=== PATIENT | female | born 1990 | race Caucasian/White ===

== ENCOUNTER 2022-04-17 08:38 | Day surgery (SDC) | payer OTHER ==
[~2022-04-17] VITALS: Ht 149.9 cm; Wt 81.6 kg
[~2022-04-17 08:38] MED LIST: ALPR2TAB1 PO; FLUT1DSK2 IH; MEGE40SU6 PO
[2022-04-17] MEDS ORDERED: PROPOFOL 200 MG/20 ML VIAL IV ONE ×2 (11:02)
[2022-04-17] MEDS ORDERED: LABETALOL 20 MG/4 ML VIAL IVP PRN (11:43)
[2022-04-17] MEDS ORDERED: hydrALAZINE 20 MG/ML VIAL IVP PRN (11:45)
[2022-04-17] MEDS ORDERED: LACTATED RINGERS 1,000 ML IV SCH (11:45)
== END 2022-04-17 12:36 | disposition home or self-care (01) ==
LOC: MDS 08:38 → MMU 08:48 → MDS 12:36
PROVIDERS: ATTEND Internal Medicine Gastroenterology
DX: K62.5 Hemorrhage of anus and rectum (principal); I10 Essential (primary) hypertension; R05.9 Cough, unspecified; K21.9 Gastro-esophageal reflux disease without esophagitis; F41.9 Anxiety disorder, unspecified; G40.909 Epilepsy, unspecified, not intractable, without status epilepticus; Z85.42 Personal history of malignant neoplasm of other parts of uterus; F31.9 Bipolar disorder, unspecified; Z88.8 Allergy status to other drugs, medicaments and biological substances; Z79.899 Other long term (current) drug therapy; Z20.822 Contact with and (suspected) exposure to COVID-19
CPT/HCPCS: 45378; 87426; J2704; J7030

== ENCOUNTER 2022-06-10 10:23 | Emergency (ER) | payer OTHER ==
[~2022-06-10] VITALS: Ht 149.9 cm; Wt 71.7 kg
[2022-06-10 10:31] VITALS: BP 170/99
--- NOTE | 2022-06-10 10:36 | NUR ---
PT AMBULATED TO BED 2
--- NOTE | 2022-06-10 10:45 | NUR ---
PT RECEIVED, CARE ASSUMED. PT PRESENTS SELF FOR EVALUATION OF MALENA UPPER BACK THAT RADIATES TO MALENA FLANK AREAS. CONNECTED TO TELE MONITOR; ST 95. MALENA LUNGS CLEAR. RESP EVEN AND UNLABORED. AWAITING TO BE SEEN BY
[2022-06-10] MEDS ORDERED: MORPHINE SULFATE 4 MG/ML SYR IVP ONE (11:00)
[2022-06-10] MEDS ORDERED: ONDANSETRON 4 MG/2 ML VIAL IVP ONE (11:00)
[2022-06-10 11:58] LABS: BASOPHILS % (AUTO) 0.5 % (0.0-2.0); EOSINOPHILS # (AUTO) 0.1 K/uL (0-0.4); EOSINOPHILS % (AUTO) 1.1 % (0.0-4.0); HEMATOCRIT 38.5 % (36-48); HEMOGLOBIN 12.8 g/dL (12.0-16.0); LYMPHOCYTES # (AUTO) 2.3 K/uL (2.5-16.5); LYMPHOCYTES % (AUTO) 24.3 % (20.5-51.1); MEAN CORPUSCULAR HEMOGLOBIN 27 pg (27-31); MEAN CORPUSCULAR HGB CONC 33 g/dL (33-37); MONOCYTES # (AUTO) 0.5 K/uL (0.8-1.0); MONOCYTES % (AUTO) 5.7 % (1.7-9.3); NEUTROPHILS # (AUTO) 6.6 K/uL (1.8-7.7); NEUTROPHILS % (AUTO) 68.4 % (42.2-75.2); PLATELET COUNT (AUTO) 272 K/uL (140-450); RED BLOOD CELL COUNT(AUTO) 4.69 MIL/uL (4.20-5.40); WHITE BLOOD COUNT (AUTO) 9.6 K/uL (4.8-10.8)
[2022-06-10 12:14] LABS: PROTHROMBIN TIME 10.5 secs (10.8-13.4)
[2022-06-10] MEDS ORDERED: ALBUTEROL SULFATE/IPRATROPIU 3 ML SOL IH ONE (12:25)
[2022-06-10] MEDS ORDERED: methylPREDNISolone SS 125 MG/2 ML VIAL IVP ONE (12:25)
[2022-06-10 12:27] LABS: ALBUMIN 3.7 g/dL (3.4-5.0); ANION GAP 14.7 (8-16); CARBON DIOXIDE 23.1 mmol/L (21-32); CREATININE 0.7 mg/dL (0.6-1.3); POTASSIUM 3.8 mmol/L (3.5-5.1); TOTAL BILIRUBIN 0.3 mg/dL (0.0-1.0)
[2022-06-10 12:35] LABS: D-DIMER < 100 ng/ml (0-400)
--- NOTE | 2022-06-10 12:35 | NUR ---
[facility] GIVEN NOTED ENCOURAGED PATIENT FOR INTERMITTENT DEEP BREATHING DURING THERAPY
[2022-06-10] MEDS ORDERED: ALBU0.0912 IH (14:41)
[2022-06-10] MEDS ORDERED: PRED20TA5 PO (14:41)
[2022-06-10] MEDS ORDERED: IBUP-2213 PO (14:41)
[2022-06-10 15:00] VITALS: BP 129/70
--- NOTE | 2022-06-10 15:00 | NUR ---
Patient discharged with v/s stable. Written and verbal after care instructions given and explained. Patient verbalized understanding. Ambulatory with steady gait. All questions addressed prior to discharge. Advised to follow up with PMD.
== END 2022-06-10 15:00 | disposition home or self-care (01) ==
LOC: MED 10:23
DX: J45.901 Unspecified asthma with (acute) exacerbation (principal); R07.2 Precordial pain; R06.02 Shortness of breath; K21.9 Gastro-esophageal reflux disease without esophagitis; Z91.013 Allergy to seafood; Z88.8 Allergy status to other drugs, medicaments and biological substances; Z79.899 Other long term (current) drug therapy; Z98.890 Other specified postprocedural states; Z90.710 Acquired absence of both cervix and uterus
CPT/HCPCS: 36415; 71045; 80053; 81025; 83880; 84484; 85025; 85379; 85610; 85730; 93005; 94640; 96374; 96375; 99285; J2270; J2405; J2930

== ENCOUNTER 2022-12-01 12:50 | Inpatient (IN) | payer OTHER ==
[~2022-12-01] VITALS: Ht 149.9 cm; Wt 81.6 kg
[~2022-12-01 12:50] MED LIST changes: +ALBU0.0912 IH; -ALPR2TAB1 PO; -FLUT1DSK2 IH; +IBUP-2213 PO; -MEGE40SU6 PO; +PRED20TA5 PO
[2022-12-01 13:06] VITALS: BP 161/103; PULSE 85; RESP 18; TEMP 99.8; O2SAT 99
[2022-12-01] MEDS ORDERED: ALUMINUM HYD/MAG/SIMETHICONE 30 ML UDC PO ONE (13:40)
[2022-12-01] MEDS ORDERED: KETOROLAC 15 MG/ML VIAL IVP ONE (13:40)
[2022-12-01] MEDS ORDERED: DICYCLOMINE 10 MG CAP PO ONE (13:40)
[2022-12-01] MEDS ORDERED: NACL 0.9% 1,000 ML IV ONE (13:40)
[2022-12-01] MEDS ORDERED: ONDANSETRON 4 MG/2 ML VIAL IVP ONE (13:40)
[2022-12-01] MEDS ORDERED: PANTOPRAZOLE 40 MG INJ VIAL IVP ONE (13:45)
--- NOTE | 2022-12-01 13:45 | NUR ---
LORI PLACED ON LABS CART. NEG PREG. DIP STICK VALUES INPUTTED. Addendum: 12/01/22 at 1352 by IVANA DIP STICK VALUES - DISREGARD, DOES NOT NEED.
[2022-12-01 13:59] LABS: BASOPHILS # (AUTO) 0.1 K/uL (0.00-0.22); BASOPHILS % (AUTO) 0.6 % (0.0-2.0); EOSINOPHILS # (AUTO) 0.2 K/uL (0-0.4); EOSINOPHILS % (AUTO) 1.5 % (0.0-4.0); HEMATOCRIT 41.8 % (36-48); HEMOGLOBIN 13.9 g/dL (12.0-16.0); LYMPHOCYTES # (AUTO) 3.5 K/uL (2.5-16.5); LYMPHOCYTES % (AUTO) 26.2 % (20.5-51.1); MEAN CORPUSCULAR HEMOGLOBIN 27 pg (27-31); MEAN CORPUSCULAR HGB CONC 33 g/dL (33-37); MEAN CORPUSCULAR VOLUME 81.9 fL (80-94); MONOCYTES # (AUTO) 0.8 K/uL (0.8-1.0); MONOCYTES % (AUTO) 6.3 % (1.7-9.3); NEUTROPHILS # (AUTO) 8.8 K/uL (1.8-7.7); NEUTROPHILS % (AUTO) 65.4 % (42.2-75.2); PLATELET COUNT (AUTO) 267 K/uL (140-450); RED BLOOD CELL COUNT(AUTO) 5.11 MIL/uL (4.20-5.40); RED CELL DISTRIBUTION WIDTH 13.2 % (11.6-13.7); WHITE BLOOD COUNT (AUTO) 13.4 K/uL (4.8-10.8)
--- NOTE | 2022-12-01 14:14 | NUR ---
X-Ray at bedside.
[2022-12-01 14:33] LABS: APPEARANCE,URINE CLOUDY (CLEAR); BILIRUBIN,URINE NEGATIVE (NEGATIVE); BLOOD, URINE NEGATIVE (NEGATIVE); COLOR,URINE YELLOW (YELLOW); LEUKOCYTE ESTERASE ,URINE NEGATIVE (NEGATIVE); NITRITE, URINE NEGATIVE (NEGATIVE); PH,URINE 7.5 (5.0-9.0); UGLUCOSE NEGATIVE (NEGATIVE)
[2022-12-01 14:35] LABS: ALBUMIN 4.1 g/dL (3.4-5.0); ANION GAP 14.6 (8-16); CARBON DIOXIDE 27.9 mmol/L (21-32); CREATININE 0.7 mg/dL (0.6-1.3); POTASSIUM 3.5 mmol/L (3.5-5.1); TOTAL BILIRUBIN 0.5 mg/dL (0.0-1.0)
--- NOTE | 2022-12-01 14:40 | NUR ---
32 Y/O FEMALE BIB FAMILY, PATIENT PRESENTS TO ED WITH C/O ABDMONIAL PAIN AND DECREASED APPETITE FOR 1 WEEK WITH DIARRHEA AND NAUSEA. PT STATES SHE WAS SEEN AT [facility] 2 DAYS AGO WITH A NEGATIVE CT SCAN AND LABS; SKIN IS PINK/WARM/DRY; AAOX4 WITH EVEN AND STEADY GAIT; LUNGS CLEAR BL; HR EVEN AND REGULAR; PT DENIES ANY FEVER, CP, SOB, OR COUGH AT THIS TIME; ABD X4 NORMOACTIVE, ROUND/SOFT/NONTENDER. PATIENT STATES PAIN OF 10/10 AT THIS TIME; PATIENT POSITIONED FOR COMFORT; HOB ELEVATED; BEDRAILS UP X2; BED DOWN. ER MD MADE AWARE OF PT STATUS. STATES SHE WAS GIVEN NORCO FOR PAIN RELIEF AND HAS BEEN HELPING TO PROVIDE RELIEF. PMH: ASTHMA, CARDIOMEGALY, GASTRITIS, HTN, SEIZURES, MIGRAINES, H-PYLORI ALLERGY: SHRIMP, IODINE
--- NOTE | 2022-12-01 15:18 | NUR ---
PT SWABBED FOR COVID
[2022-12-01] MEDS ORDERED: MORPHINE SULFATE 4 MG/ML SYR IVP ONE (15:20)
[2022-12-01] MEDS ORDERED: TOPI50TA PO (16:46)
[2022-12-01] MEDS ORDERED: ALPR0.5T2 PO (16:46)
--- NOTE | 2022-12-01 16:55 | NUR ---
Patient appears to be resting comfortably in bed. Vital Signs within normal limits. Respirations even and unlabored.
[2022-12-01] MEDS ORDERED: MAG SULF 2000 MG/WATER PREMIX 50 ML IV PRN (17:20)
[2022-12-01] MEDS ORDERED: ZOLPIDEM 5 MG TAB PO PRN (17:20)
[2022-12-01] MEDS: DEXT 5% /NACL 0.9% 1,000 ML IV SCH (18:38)
[2022-12-01] MEDS: LORazepam 1 MG TAB PO PRN (18:51)
[2022-12-01] MEDS: HYDROcodone/APAP 5/325 MG 1 TAB TAB PO PRN (18:52)
--- NOTE | 2022-12-01 20:14 | NUR ---
Patient will be admitted to [facility]. Admited to MED SURG. Will go to [id number]. Belongings list completed. Report to LUKE FUNK.
[2022-12-01 20:20] VITALS: BP 155/95; PULSE 73; RESP 22; TEMP 97.9; O2SAT 95
[2022-12-01] MEDS: TOPIRAMATE 25 MG TAB PO SCH (22:10)
[2022-12-01] MEDS: ALPRAZolam 0.5 MG TAB PO SCH (22:11)
[2022-12-01] MEDS: MORPHINE SULFATE 4 MG/ML SYR IVP PRN (22:12)
[2022-12-02] MEDS: MORPHINE SULFATE 4 MG/ML SYR IVP PRN ×3 (02:22→10:32)
[2022-12-02] MEDS: HYDROcodone/APAP 5/325 MG 1 TAB TAB PO PRN ×2 (03:24→07:58)
[2022-12-02] MEDS: DEXT 5% /NACL 0.9% 1,000 ML IV SCH (03:26)
[2022-12-02 04:00] VITALS: BP 167/99; PULSE 71; RESP 22; TEMP 97.9; O2SAT 97
[2022-12-02] MEDS: LORazepam 1 MG TAB PO PRN ×2 (04:40→23:28)
[2022-12-02] MEDS: ONDANSETRON 4 MG/2 ML VIAL IVP PRN ×2 (04:42→14:51)
[2022-12-02] MEDS ORDERED: KETOROLAC 15 MG/ML VIAL ONE (05:04)
[2022-12-02] MEDS ORDERED: KETOROLAC 15 MG/ML VIAL IVP SCH (05:05)
--- NOTE | 2022-12-02 07:00 | NUR ---
RECEIVED BEDSIDE REPORT FROM NIGHTSHIFT NURSE. PT ASLEEP IN BED, WOKE TO NAME AND TOUCH. NO SIGNS OF DISTRESS. CALL LIGHT WITHIN REACH, WILL CONTINUE WITH CARE.
[2022-12-02 07:03] LABS: ALBUMIN 3.7 g/dL (3.4-5.0); ANION GAP 14.8 (8-16); BASOPHILS % (AUTO) 0.3 % (0.0-2.0); CARBON DIOXIDE 23.3 mmol/L (21-32); CREATININE 0.6 mg/dL (0.6-1.3); EOSINOPHILS # (AUTO) 0.1 K/uL (0-0.4); EOSINOPHILS % (AUTO) 0.4 % (0.0-4.0); HEMATOCRIT 39.4 % (36-48); HEMOGLOBIN 13.4 g/dL (12.0-16.0); LYMPHOCYTES # (AUTO) 1.4 K/uL (2.5-16.5); LYMPHOCYTES % (AUTO) 10.1 % (20.5-51.1); MAGNESIUM 1.9 mg/dL (1.8-2.4); MEAN CORPUSCULAR HEMOGLOBIN 27 pg (27-31); MEAN CORPUSCULAR HGB CONC 34 g/dL (33-37); MEAN CORPUSCULAR VOLUME 80.4 fL (80-94); MONOCYTES # (AUTO) 0.7 K/uL (0.8-1.0); MONOCYTES % (AUTO) 4.8 % (1.7-9.3); NEUTROPHILS # (AUTO) 11.7 K/uL (1.8-7.7); NEUTROPHILS % (AUTO) 84.4 % (42.2-75.2); PLATELET COUNT (AUTO) 226 K/uL (140-450); POTASSIUM 3.1 mmol/L (3.5-5.1); RED CELL DISTRIBUTION WIDTH 13.1 % (11.6-13.7); TOTAL BILIRUBIN 0.7 mg/dL (0.0-1.0); WHITE BLOOD COUNT (AUTO) 13.9 K/uL (4.8-10.8)
[2022-12-02 08:00] VITALS: RESP 18; O2SAT 98
--- NOTE | 2022-12-02 08:42 | NUR ---
PATIENT HAS BEEN SCREENED AND CATEGORIZED LOW NUTRITION RISK. PATIENT WILL BE SEEN WITHIN 7 DAYS OF ADMISSION. 12/08/[address]
[2022-12-02] MEDS: TOPIRAMATE 25 MG TAB PO SCH ×2 (09:48→21:03)
[2022-12-02] MEDS: ENOXAPARIN 40 MG/0.4 ML SYR SUBQ SCH (09:50)
[2022-12-02] MEDS: LACTATED RINGERS 1,000 ML IV SCH (12:16)
[2022-12-02] MEDS: HYDROmorphone PFS 2 MG/ML SYR IVP PRN ×3 (14:52→23:53)
--- NOTE | 2022-12-02 14:52 | NUR ---
MEDICATED PT WITH PRN DILAUDID FOR SEVERE 10/10 PAIN AND ZOFRAN FOR NAUSEA.
[2022-12-02 16:00] VITALS: BP 152/80; PULSE 97; RESP 18; TEMP 99.1; O2SAT 95
[2022-12-02] MEDS ORDERED: KCL 20 MEQ IN 100 mL PREMIX 200 ML IV SCH (17:00)
--- NOTE | 2022-12-02 17:14 | NUR ---
Labor Arbitrator Hearing Office CODER OPERATOR conducted a discharge planning assessment. Pt. stated she is pre-diabetic, her Primary Dr. is Jeremy from the [facility] group. Pt. stated she plans to go home upon discharge.
--- NOTE | 2022-12-02 19:47 | NUR ---
PT COMPLAINTS OF SEVERE ABDOMINAL PAIN 02/14. PAIN MEDICATION DILAUDID ADMINISTERED.
[2022-12-02 20:00] VITALS: BP 158/100; PULSE 112; RESP 18; TEMP 98.3; O2SAT 95
--- NOTE | 2022-12-02 20:20 | NUR ---
PT WAS TAKEN TO RADIOLOGY FOR CT SCAN.
--- NOTE | 2022-12-02 20:35 | NUR ---
PT BACK FROM RADIOLOGY AWAKE AND ALERT.
--- NOTE | 2022-12-02 20:47 | NUR ---
REASSESSMENT OF PAIN. PT IS ASLEEP, NO FACIAL GRIMACING.
[2022-12-02] MEDS ORDERED: ALPRAZolam 0.25 MG TAB ONE (20:49)
[2022-12-02] MEDS: ALPRAZolam 0.5 MG TAB PO SCH (21:10)
--- NOTE | 2022-12-02 21:53 | NUR ---
RECEIVED CT ABDOMEN/PELVIS WITHOUT CONTRAS RESULT, SENT RESULT TO DR. MCQUEEN. MD ORDER TO START ZOSYN AND NPO AFTER MIDNIGHT. MD ALSO ORDER THE NEED OF SURGICAL CONSULT IN AM. WILL ENDORSE TO DAY SHIFT NURSE TO INFORM ATTENDING. ORDER CARRIED OUT.
[2022-12-02] MEDS ORDERED: PIPERACILLIN/TAZOBACTAM 3.375 GM in DEXTROSE 5% 50 ML IV STA (21:57)
[2022-12-02] MEDS: PIPERACILLIN/TAZOBACTAM 3.375 GM in DEXTROSE 5% 50 ML IV SCH (23:00)
[2022-12-02] MEDS ORDERED: PIPERACILLIN/TAZOBACTAM 3.375 GM VIAL IV ONE (23:06)
[2022-12-03] MEDS: PIPERACILLIN/TAZOBACTAM 3.375 GM in DEXTROSE 5% 50 ML IV SCH ×6 (00:09→23:26)
[2022-12-03] MEDS: LACTATED RINGERS 1,000 ML IV SCH ×3 (00:12→21:53)
[2022-12-03] MEDS: HYDROmorphone PFS 2 MG/ML SYR IVP PRN ×3 (04:26→10:50)
[2022-12-03] MEDS ORDERED: PIPERACILLIN/TAZOBACTAM 3.375 GM VIAL IV ONE (05:54)
[2022-12-03 06:40] LABS: ANION GAP 14.7 (8-16); CARBON DIOXIDE 21.5 mmol/L (21-32); CREATININE 0.7 mg/dL (0.6-1.3); MAGNESIUM 1.8 mg/dL (1.8-2.4); PHOSPHORUS 2.8 mg/dL (2.5-4.9); POTASSIUM 3.2 mmol/L (3.5-5.1)
[2022-12-03 06:47] LABS: HEMATOCRIT 39.7 % (36-48); HEMOGLOBIN 13.5 g/dL (12.0-16.0); MEAN CORPUSCULAR HEMOGLOBIN 27 pg (27-31); MEAN CORPUSCULAR HGB CONC 34 g/dL (33-37); MEAN CORPUSCULAR VOLUME 80.8 fL (80-94); PLATELET COUNT (AUTO) 198 K/uL (140-450); RED BLOOD CELL COUNT(AUTO) 4.92 MIL/uL (4.20-5.40); RED CELL DISTRIBUTION WIDTH 13.4 % (11.6-13.7); WHITE BLOOD COUNT (AUTO) 22.4 K/uL (4.8-10.8)
--- NOTE | 2022-12-03 07:30 | NUR ---
GOT REPORT FROM THE NIGHT NURSE PT AWAKE , DISCUSSED POC PT COMPLAINS OF PAIN.[id number]
[2022-12-03 07:36] LABS: BASOPHILS % (MANUAL) 0 % (0-2); BLASTS, MANUAL % 0 % (0-0); EOSINOPHILS % (MANUAL) 0 % (0-4); LYMPHOCYTES % (MANUAL) 2 % (20-46); METAMYELOCYTES % 0 % (0-0); MONOCYTES % (MANUAL) 2 % (5-12); MYELOCYTES % 0 % (0-0); OTHER CELLS,MANUAL % 0 (0-0); PROMYELOCYTES % 0 % (0-0)
[2022-12-03 08:00] VITALS: BP 151/100; PULSE 130; RESP 20; TEMP 98.5; O2SAT 95
[2022-12-03] MEDS: ENOXAPARIN 40 MG/0.4 ML SYR SUBQ SCH (09:00)
[2022-12-03] MEDS: TOPIRAMATE 25 MG TAB PO SCH ×2 (09:00→21:40)
[2022-12-03] MEDS ORDERED: PIPERACILLIN/TAZOBACTAM 3.375 GM in DEXTROSE 5% 50 ML IV SCH (12:00)
--- NOTE | 2022-12-03 12:15 | NUR ---
DC PLANNING 32Y 0 FEMALE PATIENT ADMITTED TO MED SURG UNIT FOR SEVERE ABDOMINAL PAIN.HX OF UTERINE CANCER POST HYSTERECTOMY 10 YEARS AGO AND CHEMOTHERAPY.WBC 22.4.LIPASE LEVE ELEVATED.ABDOMEN/PELVIS CT SCAN SHOWS INFLAMMATORY CHANGES COMPATIBLE WITH ACUTE APPENDICITIS.SURGERY WAS CONSULTED.DC PLAN-DC HOME WHEN PATIENT CONDITION IMPROVES.CM TO FOLLOW.
--- NOTE | 2022-12-03 13:10 | NUR ---
PT FAMILY AT BEDSIDE, STARTED THE 24 URINE COLLECTION . [id number]
[2022-12-03] MEDS: HYDROmorphone 1 MG/ML AMP IVP PRN ×3 (14:29→23:19)
--- NOTE | 2022-12-03 15:31 | NUR ---
PT UP TO USE BATHROOM, PT PREFER TO SEAT UP ON THE BED, CONTINUED TO COLLECT THE URINE.[email or web address]
[2022-12-03 16:00] VITALS: BP 143/86; PULSE 127; RESP 20; TEMP 98.8; O2SAT 96
--- NOTE | 2022-12-03 16:50 | NUR ---
pt asks for pain med when it is not due, reassessing and informing the
[2022-12-03] MEDS ORDERED: HYDROmorphone PFS 2 MG/ML SYR IVP PRN (16:55)
[2022-12-03] MEDS ORDERED: KCL 20 MEQ IN 100 mL PREMIX 100 ML IV PRN (17:00)
--- NOTE | 2022-12-03 18:15 | NUR ---
per dr Nelson (GI) PT IS GETTING IV FLUID .9NS 500ML BOLUS AND WILL BE CONTINUED 150/HR. SPOKE WITH MOTHER ABOUT HER DISEASE AND FAMILY SEEMS TO UNDERSTAND NOW.
--- NOTE | 2022-12-03 18:49 | NUR ---
ND DR ZHONG .9NS 500 BOLUS AND CHANGE TO LR 150 AND TOMORROW PT CAN BE CHANGED TO D5AND HALF. [id number]
--- NOTE | 2022-12-03 19:30 | NUR ---
RECEIVED REPORT FROM DAY SHIFT NURSE KALLIE FOR CONTINUITY OF CARE. PATIENT IS A&O X4. PATIENT IS ON ROOM AIR; BREATHING IS NORMAL WITH SYMMETRICAL RISE AND FALL OF CHEST. IV IS A 22G RAC AND 20G LAC; RUNNING 500ML BOLUS OF NS. THEN TO BE SWITCHED BACK TO LR 120ML. PATIENT IS SITTING UP IN BED WITH MOTHER AT BEDSIDE. BED IS IN LOWEST POSITION, WHEELS LOCKED, CALL LIGHT IN PLACE. WILL CONTINUE TO OBSERVE PATIENT.
[2022-12-03 20:00] VITALS: BP 139/98; PULSE 122; RESP 20; TEMP 99.2; O2SAT 95
--- NOTE | 2022-12-03 20:03 | NUR ---
PATIENT COMPLAINED OF 8/10 PAIN AND REQUESTED THE DILAUDID FOR HER PAIN (SAME MEDICATION GIVEN EARLIER TO HER). CHECKED PATIENT'S CHART AND VITALS; PAIN MEDICATION WAS APPROPRIATE TO ADMINISTER; TORADOL WAS MORE APPROPRIATE BASED ON PATIENT'S PAIN SCALE RATING, BUT PATIENT REQUESTED THE SAME MEDICATION SHE RECEIVED EARLIER. ADMINISTERED DILAUDID TO PATIENT. ADMINISTRATION SUCCESSFUL WITHOUT ANY ISSUES WITH IV. WILL CONTINUE TO OBSERVE PATIENT.
[2022-12-03] MEDS: ALPRAZolam 0.5 MG TAB PO SCH (21:40)
[2022-12-03] MEDS: PANTOPRAZOLE 40 MG INJ VIAL IVP SCH (21:42)
--- NOTE | 2022-12-03 21:52 | NUR ---
PATIENT WAS REASSESSED FOR PAIN. PATIENT STATED PAIN 4/10; CHECKED PATIENT'S VITALS; BP WAS 152/98 HR WAS 119. ADMINISTERED 2100 MEDICATIONS. PATIENT IS NOW LYING SUPINE; WILL CONTINUE TO OBSERVE PATIENT.
--- NOTE | 2022-12-04 00:39 | NUR ---
PATIENT COMPLAINED OF 9/10 PAIN, ASKED PATIENT AGAIN IF SHE WANTED THE TORADOL SINCE IT'S WHAT THE DOCTOR RECOMMENDS FOR PAIN THAT'S 9/10. PATIENT STATED, "NO, THE TORADOL DOESN'T WORK FOR ME. ILL TAKE THE DILAUDID." CHECKED PATIENT'S CHART AND VITALS (BP WAS 121/80, HR 117) PAIN MEDICATION WAS APPROPRIATE TO ADMINISTER; ADMINISTERED DILAUDID TO PATIENT AT 2319. ADMINISTRATION SUCCESSFUL WITHOUT ANY ISSUES WITH IV. REASSESSED PATIENT, PATIENT WAS SLEEPING. MEDICATION WAS EFFECTIVE. WILL CONTINUE TO OBSERVE PATIENT.
[2022-12-04] MEDS: HYDROmorphone 1 MG/ML AMP IVP PRN ×6 (02:25→20:09)
[2022-12-04] MEDS: LACTATED RINGERS 1,000 ML IV SCH ×3 (02:31→23:10)
--- NOTE | 2022-12-04 02:33 | NUR ---
PATIENT'S IV CAME OUT. NEW IV WAS INSERTED BY NURSE PRICE. NEW IV IS A 22G RAC; IV IS RUNNING LR 120. WILL CONTINUE TO OBSERVE PATIENT.
--- NOTE | 2022-12-04 02:33 | NUR ---
PATIENT REQUESTED PAIN MEDICATION AFTER IV INSERTION. CHECKED PATIENT'S VITALS (BP 145/89, HR 113) AND CHART; PAIN MEDICATION WAS APPROPRIATE TO ADMINISTER. MEDICATED PATIENT WITH DILAUDID PER THEIR REQUEST FOR PAIN. WILL CONTINUE TO OBSERVE PATIENT.
[2022-12-04 04:00] VITALS: BP 151/102; PULSE 121; RESP 20; TEMP 99.5; O2SAT 96
--- NOTE | 2022-12-04 05:34 | NUR ---
PATIENT WAS IN 10/10 PAIN. PATIENT STATED SHE NEEDED ANOTHER DOES OF THE SAME PAIN MEDICATION. I CHECKED PATIENT'S VITALS (BP 153/97, HR 121) AND CHART; PAIN MEDICATION WAS APPROPRIATE TO ADMINISTER. MEDICATION ADMINISTERED SUCCESSFULLY WITHOUT ANY ISSUES WITH IV. WILL CONTINUE TO OBSERVE PATIENT.
[2022-12-04] MEDS: PIPERACILLIN/TAZOBACTAM 3.375 GM in DEXTROSE 5% 50 ML IV SCH ×4 (05:42→23:10)
[2022-12-04 06:20] LABS: BASOPHILS # (AUTO) 0.1 K/uL (0.00-0.22); BASOPHILS % (AUTO) 0.3 % (0.0-2.0); EOSINOPHILS # (AUTO) 0.1 K/uL (0-0.4); EOSINOPHILS % (AUTO) 0.3 % (0.0-4.0); HEMATOCRIT 41.2 % (36-48); HEMOGLOBIN 13.6 g/dL (12.0-16.0); LYMPHOCYTES % (AUTO) 7.9 % (20.5-51.1); MEAN CORPUSCULAR HEMOGLOBIN 27 pg (27-31); MEAN CORPUSCULAR HGB CONC 33 g/dL (33-37); MEAN CORPUSCULAR VOLUME 82.4 fL (80-94); MONOCYTES # (AUTO) 1.9 K/uL (0.8-1.0); MONOCYTES % (AUTO) 7.6 % (1.7-9.3); NEUTROPHILS # (AUTO) 20.9 K/uL (1.8-7.7); NEUTROPHILS % (AUTO) 83.9 % (42.2-75.2); PLATELET COUNT (AUTO) 207 K/uL (140-450); RED CELL DISTRIBUTION WIDTH 13.5 % (11.6-13.7)
--- NOTE | 2022-12-04 06:34 | NUR ---
WENT TO ROOM TO REASSESS PATIENT'S PAIN. PATIENT WAS SLEEPING; MEDICATION WAS EFFECTIVE. IV WAS RUNNING; BREATHING WAS NORMAL WITH SYMMETRICAL RISE AND FALL OF CHEST. WILL CONTINUE TO OBSERVE PATIENT.
[2022-12-04 06:37] LABS: ALBUMIN 2.9 g/dL (3.4-5.0); ANION GAP 14.5 (8-16); CARBON DIOXIDE 20.8 mmol/L (21-32); CREATININE 0.6 mg/dL (0.6-1.3); PHOSPHORUS 1.5 mg/dL (2.5-4.9); POTASSIUM 3.3 mmol/L (3.5-5.1); TOTAL BILIRUBIN 0.9 mg/dL (0.0-1.0)
[2022-12-04] MEDS: KETOROLAC 15 MG/ML VIAL IVP PRN ×3 (07:06→23:13)
--- NOTE | 2022-12-04 07:06 | NUR ---
receive the patient from the chlorine cells operator law Mireles in rm [address] with admitting diagnosis of pancreatitis . afebrile .will continue to monitor
--- NOTE | 2022-12-04 07:11 | NUR ---
PATIENT CALLED COMPLAINING OF 10/10 ABDOMINAL PAIN. EXPLAINED TO PATIENT THAT PAIN MEDICATION DILAUDID COULDN'T BE GIVEN FOR 90 MORE MINUTES. OFFERED PATIENT TORADOL; PATIENT STATED SHE WANTED THE DILAUDID, RE-EXPLAINED TO THE PATIENT THAT I COULDN'T GIVE IT TO HER YET; BUT I COULD GIVE THE TORADOL. PATIENT AGREED TO TAKE THE TORADOL. CHECKED PATIENT'S VITALS (BP 148/100 HR 108). MEDICATION WAS APPROPRIATE TO ADMINISTER. MEDICATION WAS SUCCESSFULLY ADMINISTERED WITHOUT ANY ISSUES WITH IV. WILL ENDORSE REASSESSMENT TO DAY SHIFT.
[2022-12-04 08:00] VITALS: BP 156/107; PULSE 116; RESP 18; TEMP 96.7; O2SAT 97
[2022-12-04 08:04] VITALS: PULSE 119; RESP 19; O2SAT 98
[2022-12-04] MEDS: TOPIRAMATE 25 MG TAB PO SCH ×2 (09:16→20:03)
[2022-12-04] MEDS: PANTOPRAZOLE 40 MG INJ VIAL IVP SCH ×2 (09:18→20:13)
[2022-12-04] MEDS: ENOXAPARIN 40 MG/0.4 ML SYR SUBQ SCH (09:19)
[2022-12-04 16:00] VITALS: BP 147/97; PULSE 102; RESP 18; TEMP 98.5; O2SAT 96
--- NOTE | 2022-12-04 16:05 | NUR ---
12/04/22 RD INITIAL ASSESSMENT COMPLETED PLEASE REFER TO NUTRITION ASSESSMENT UNDER CARE ACTIVITY FOR ESTIMATED NUTRITIONAL NEEDS. 1. CONTINUE CLEAR LIQUID DIET TOLERATED AND ADVANCE TO FULL LIQUID ONCE MEDICALLY APPROPRIATE. ONCE PATIENT CAN TOLERATED FULL FOOD LOW FAT DIET IS RECOMMENDED. 2. RD RECOMMENDS ENSURE CLEAR BID TOLERATED FOR IMPORVED PO INTAKE, THIS WILL PROVIDE 480 CALORIES AND 16 GRAMS OF PROTEIN. 3. RD TO FOLLOW-UP 3-5 DAYS, MODERATE RISK CHRERIE GALVAN RD
[2022-12-04] MEDS: NACL 0.9% IV PRN (18:04)
[2022-12-04] MEDS: POTASSIUM CHLORIDE IV PRN (18:04)
[2022-12-04] MEDS: LIDOCAINE IV PRN (18:04)
[2022-12-04] MEDS: ACETAMINOPHEN 325 MG TAB PO PRN (18:08)
--- NOTE | 2022-12-04 18:50 | NUR ---
will endorse to [facility] shift lead rn for continuity of care
--- NOTE | 2022-12-04 19:30 | NUR ---
RECEIVED REPORT FROM DAY SHIFT NURSE FOR CONTINUITY OF CARE. PT IS AWAKE AT THIS TIME. ALERT AND ORIENTED X4, AMBULATORY, AND CONTINENT. CURRENTLY ON ROOM AIR WITH NO APPARENT SIGNS OF ACUTE DISTRESS NOTED. PATIENT STATES A 9/10 PAIN IN ABDOMEN. IV SITE LOCATED AT RIGHT AC, 22 GAUGE, INTACT AND PATENT. OVERALL SKIN IS INTACT. POC DISCUSSED WITH PATIENT, CALL LIGHT PLACED WITHIN REACH, SAFETY MEASURES IN PLACE. WILL MONITOR FREQUENTLY THROUGHOUT SHIFT.
[2022-12-04 20:00] VITALS: PULSE 88; RESP 18; O2SAT 97
--- NOTE | 2022-12-04 20:00 | NUR ---
Patient's Plan of Care was discussed and reviewed with RHONDA: ALBER
--- NOTE | 2022-12-04 20:10 | NUR ---
SCHEDULED MEDICATIONS ADMINISTERED WITH NO COMPLICATIONS. PATIENT STATED 9/10 PAIN IN ABDOMEN, RADIATING TO CHEST. POC DISCUSSED AND DILAUDID IVP WAS ADMINISTERED BY RN: RENAE. PT TOLERATED WELL. WILL REASSESS PAIN LEVEL IN ONE HOUR.
[2022-12-04] MEDS: ALPRAZolam 0.5 MG TAB PO SCH (21:00)
--- NOTE | 2022-12-04 21:08 | NUR ---
WENT INTO ROOM TO REASSESS PATIENT. PATIENT ASLEEP RESTING COMFORTABLY, NO SIGNS OF DISTRESS NOTED. WILL CONTINUE TO MONITOR.
[2022-12-04] MEDS: LORazepam 1 MG TAB PO PRN (22:09)
--- NOTE | 2022-12-04 22:10 | NUR ---
PATIENT STATED SHE IS FEELING ANXIOUS. MEDICATED PRN PER MD ORDER. TOLERATED WELL. ALL SAFETY MEASURES IN PLACE. BED IN LOW/LOCKED POSITION. CALL LIGHT WITHIN REACH. ENCOURAGED TO CALL FOR ANY NEEDS/ASSISTANCE. WILL CONTINUE TO MONITOR.
[2022-12-05] MEDS: LACTATED RINGERS 1,000 ML IV SCH ×2 (00:33→17:18)
--- NOTE | 2022-12-05 00:33 | NUR ---
IV FLUID CHANGED AND INFUSING WELL. WILL CONTINUE MONITORING THE PATIENT.
[2022-12-05] MEDS: HYDROmorphone 1 MG/ML AMP IVP PRN ×5 (01:42→20:17)
[2022-12-05 04:00] VITALS: BP 151/88; PULSE 101; RESP 18; TEMP 97.9; O2SAT 98
[2022-12-05] MEDS: ACETAMINOPHEN 325 MG TAB PO PRN ×2 (04:02→12:25)
--- NOTE | 2022-12-05 04:19 | NUR ---
PATIENT COMPLAINT OF 10/10 PAIN IN ABDOMEN. INFORMED THE PATIENT THAT HER PRN PAIN MEDICATIONS FOR MODERATE TO SEVERE PAIN WERE NOT YET DUE AND EDUCATED HER ON WHY THESE PROTOCOLS ARE IN PLACE. PATIENT VERBALIZED UNDERSTANDING AND REQUESTED IF SHE COULD RECEIVE TYLENOL TO HELP MANAGE HER PAIN UNTIL HER PRN PAIN MEDICATIONS WERE DUE. TYLENOL 650 MG PO WAS ADMINISTERED TO PATIENT REQUESTED. PT TOLERATED WELL, WILL REASSESS PAIN LEVEL IN ONE HOUR.
[2022-12-05] MEDS: PIPERACILLIN/TAZOBACTAM 3.375 GM in DEXTROSE 5% 50 ML IV SCH ×3 (05:14→17:19)
[2022-12-05 06:15] LABS: BASOPHILS # (AUTO) 0.1 K/uL (0.00-0.22); BASOPHILS % (AUTO) 0.3 % (0.0-2.0); EOSINOPHILS # (AUTO) 0.3 K/uL (0-0.4); EOSINOPHILS % (AUTO) 1.8 % (0.0-4.0); HEMATOCRIT 35.3 % (36-48); HEMOGLOBIN 11.7 g/dL (12.0-16.0); LYMPHOCYTES # (AUTO) 2.2 K/uL (2.5-16.5); LYMPHOCYTES % (AUTO) 11.6 % (20.5-51.1); MEAN CORPUSCULAR HEMOGLOBIN 27 pg (27-31); MEAN CORPUSCULAR HGB CONC 33 g/dL (33-37); MEAN CORPUSCULAR VOLUME 81.9 fL (80-94); MONOCYTES # (AUTO) 1.5 K/uL (0.8-1.0); MONOCYTES % (AUTO) 7.8 % (1.7-9.3); NEUTROPHILS % (AUTO) 78.5 % (42.2-75.2); PLATELET COUNT (AUTO) 216 K/uL (140-450); RED CELL DISTRIBUTION WIDTH 13.3 % (11.6-13.7); WHITE BLOOD COUNT (AUTO) 19.1 K/uL (4.8-10.8)
[2022-12-05 06:49] LABS: ALBUMIN 2.7 g/dL (3.4-5.0); ANION GAP 13.4 (8-16); CARBON DIOXIDE 20.7 mmol/L (21-32); CREATININE 0.6 mg/dL (0.6-1.3); MAGNESIUM 2.2 mg/dL (1.8-2.4); PHOSPHORUS 1.6 mg/dL (2.5-4.9); POTASSIUM 3.1 mmol/L (3.5-5.1); TOTAL BILIRUBIN 0.6 mg/dL (0.0-1.0)
--- NOTE | 2022-12-05 07:09 | NUR ---
receive the patient in rm [address] from maintenance supervisor 2nd shift PATTERN CHANGERFabian [email or web address] with admitting diagnosis of pancreatitis, leukocytocis
[2022-12-05 07:22] VITALS: PULSE 98; RESP 20; O2SAT 99
--- NOTE | 2022-12-05 07:50 | NUR ---
MD Baker rounded . order lipase for the patient
[2022-12-05 08:00] VITALS: BP 166/111; PULSE 98; RESP 19; TEMP 97.5; O2SAT 99
[2022-12-05] MEDS: TOPIRAMATE 25 MG TAB PO SCH ×2 (08:51→20:15)
[2022-12-05] MEDS: KETOROLAC 15 MG/ML VIAL IVP PRN ×2 (08:51→17:19)
[2022-12-05] MEDS: ENOXAPARIN 40 MG/0.4 ML SYR SUBQ SCH (08:52)
[2022-12-05] MEDS: PANTOPRAZOLE 40 MG INJ VIAL IVP SCH ×2 (08:53→20:14)
[2022-12-05] MEDS: LIDOCAINE IV PRN (10:00)
[2022-12-05] MEDS: POTASSIUM CHLORIDE IV PRN (10:00)
[2022-12-05] MEDS: NACL 0.9% IV PRN (10:00)
--- NOTE | 2022-12-05 10:30 | NUR ---
potassium was 3.1 . potassium was replaced with potassium k rider intravenous
[2022-12-05 16:00] VITALS: BP 150/95; PULSE 93; RESP 18; TEMP 99.7; O2SAT 98
--- NOTE | 2022-12-05 19:15 | NUR ---
HAND-OFF REPORT RECEIVED FROM SINTIA FUNK WITH BEDSIDE ROUNDS FOLLOWING. PT RECEIVED AOX4 WITH C/O OF ABDOMINAL PAIN AND DX OF PANCREATITIS. REPORTED REQUESTING PRN DILAUDID Q3H. LR@120ML/H R HAND. SITE BENIGN. PRESENTLY REQUESTING PAIN MED WHEN DUE. FATHER COMFORTING AT BEDSIDE. PLAN:SCHEDULED MEDS ORDERED AND PROVIDE PRN MEDS PER PARAMETERS ALONG WITH COMFORT MEASURES. CONTINUE ANTIBIOTIC THERAPY SCHEDULED.
[2022-12-05 20:00] VITALS: BP 151/91; PULSE 93; RESP 18; RESP 20; TEMP 99.4; O2SAT 97; O2SAT 98
[2022-12-05] MEDS: ALPRAZolam 0.5 MG TAB PO SCH (22:26)
--- NOTE | 2022-12-05 23:00 | NUR ---
IV DISLODGED WITH MINIMAL LOSS OF BLOOD ON PILLOWCASE/SELF CLOTTED SPONTANEOUSLY AT SITE. NEW IV 22 GA BEGAN L HAND/ONE STICK. PT TOLERATED WELL. SECURED WITH WEBRIL WRAP.
[2022-12-06] VITALS: BP 172/112; PULSE 83; RESP 18; TEMP 98; O2SAT 98
[2022-12-06] MEDS: PIPERACILLIN/TAZOBACTAM 3.375 GM in DEXTROSE 5% 50 ML IV SCH ×2 (00:01→05:02)
[2022-12-06] MEDS: HYDROmorphone 1 MG/ML AMP IVP PRN ×4 (00:10→11:58)
[2022-12-06] MEDS: LACTATED RINGERS 1,000 ML IV SCH (03:18)
[2022-12-06] MEDS: KETOROLAC 15 MG/ML VIAL IVP PRN (03:26)
--- NOTE | 2022-12-06 03:30 | NUR ---
HAND-0FF REPORT TO CO-WORKER FOR CONTINUITY OF CARE. PT RESTING QUIETLY IN BED. NO ACUTE DISTRESS. CONTINUE TO MEDICATED WITH SCHEDULED MEDS AND PRN PAIN MEDS PER PARAMETERS. RELINQUISHED CARE OF PT AT THIS TIME.
[2022-12-06 04:10] VITALS: BP 142/84; PULSE 80; RESP 18; TEMP 98.2; O2SAT 98
--- NOTE | 2022-12-06 04:10 | NUR ---
REPORT GIVEN BY BLESSING ARAYA FOR CONTINUITY OF CARE. PATIENT IS ASLEEP, EASILY AWAKEN BY VERBAL STIMULI. DENIES PAIN AT THIS TIME. DENIES SHORTNESS OF BREATH. SKIN WARM AND DRY TO TOUCH. SAFETY PRECAUTIONS IN PLACE, CALL LIGHT IN REACH.
[2022-12-06 06:15] LABS: BASOPHILS # (AUTO) 0.1 K/uL (0.00-0.22); BASOPHILS % (AUTO) 0.3 % (0.0-2.0); EOSINOPHILS # (AUTO) 0.4 K/uL (0-0.4); EOSINOPHILS % (AUTO) 2.2 % (0.0-4.0); HEMATOCRIT 32.1 % (36-48); LYMPHOCYTES # (AUTO) 2.6 K/uL (2.5-16.5); MEAN CORPUSCULAR HEMOGLOBIN 27 pg (27-31); MEAN CORPUSCULAR HGB CONC 34 g/dL (33-37); MEAN CORPUSCULAR VOLUME 79.5 fL (80-94); MONOCYTES # (AUTO) 1.7 K/uL (0.8-1.0); MONOCYTES % (AUTO) 9.1 % (1.7-9.3); NEUTROPHILS # (AUTO) 14.4 K/uL (1.8-7.7); NEUTROPHILS % (AUTO) 75.1 % (42.2-75.2); PLATELET COUNT (AUTO) 240 K/uL (140-450); RED BLOOD CELL COUNT(AUTO) 4.03 MIL/uL (4.20-5.40); RED CELL DISTRIBUTION WIDTH 13.3 % (11.6-13.7); WHITE BLOOD COUNT (AUTO) 19.2 K/uL (4.8-10.8)
--- NOTE | 2022-12-06 06:17 | NUR ---
PATIENT IS ASLEEP. NO DISTRESS NOTED. ALL NEEDS ATTENDED TO. SAFETY PRECAUTIONS MAINTAINED DURING THE SHIFT, CALL LIGHT REMAINS WITHIN REACH.
[2022-12-06 06:44] LABS: ALBUMIN 2.7 g/dL (3.4-5.0); ANION GAP 15.7 (8-16); CARBON DIOXIDE 20.2 mmol/L (21-32); CREATININE 0.6 mg/dL (0.6-1.3); MAGNESIUM 2.2 mg/dL (1.8-2.4); PHOSPHORUS 3.1 mg/dL (2.5-4.9); TOTAL BILIRUBIN 0.6 mg/dL (0.0-1.0)
[2022-12-06 07:02] LABS: LYMPHOCYTES % (AUTO) 13.3 % (20.5-51.1)
[2022-12-06 07:19] LABS: POTASSIUM 2.9 mmol/L (3.5-5.1)
--- NOTE | 2022-12-06 07:31 | NUR ---
GOT REPORT FROM THE NIGHT NURSE, PT SLEEPING , NO SOB. [email or web address]
[2022-12-06 08:00] VITALS: PULSE 67; RESP 17; O2SAT 97
[2022-12-06] MEDS: TOPIRAMATE 25 MG TAB PO SCH ×2 (08:30→21:06)
[2022-12-06] MEDS: PANTOPRAZOLE 40 MG INJ VIAL IVP SCH ×2 (08:31→08:48)
[2022-12-06] MEDS: ENOXAPARIN 40 MG/0.4 ML SYR SUBQ SCH (08:36)
[2022-12-06] MEDS ORDERED: POTASSIUM CHLORIDE 40 MEQ, LIDOCAINE 1% 25 MG in NACL 0.9% 250 ML IV PRN (08:40)
[2022-12-06 12:00] VITALS: BP 142/84; PULSE 67; RESP 17; TEMP 98.2; O2SAT 97
[2022-12-06] MEDS ORDERED: HYDROcodone/APAP 10/325 MG 1 TAB TAB PO PRN (12:20)
[2022-12-06] MEDS ORDERED: OXYC-304 PO (13:03)
[2022-12-06] MEDS: LORazepam 1 MG TAB PO PRN (16:31)
--- NOTE | 2022-12-06 18:23 | NUR ---
STARTED IV WITH 22G ON THE LEFT FOREARM.[email or web address]
--- NOTE | 2022-12-06 18:54 | NUR ---
FAMILY AT BEDSIDE.[email or web address]
--- NOTE | 2022-12-06 19:26 | NUR ---
gave report to the night nurse, pt sleeping, iv running as ordered.[email or web address]
[2022-12-06 20:00] VITALS: BP 144/96; PULSE 93; RESP 18; TEMP 99.7; O2SAT 98
--- NOTE | 2022-12-06 20:00 | NUR ---
PT HAS A LOW GRADE FEVER, COOLING MEASURES APPLIED.
[2022-12-06] MEDS: ALPRAZolam 0.25 MG TAB ONE ×2 (20:48→21:02)
[2022-12-06] MEDS: oxyCODONE/APAP 5/325 MG 1 TAB TAB PO PRN (20:58)
--- NOTE | 2022-12-06 20:58 | NUR ---
PT COMPLAINTS OF SEVERE ABDOMINAL PAIN 10/10, PAIN MEDICATION PERCOCET ADMINISTERED.
--- NOTE | 2022-12-06 21:00 | NUR ---
PT BODY TEMP DOWN FROM 99.7 TO 98.1
[2022-12-06] MEDS: ALPRAZolam 0.5 MG TAB PO SCH (21:05)
--- NOTE | 2022-12-06 21:58 | NUR ---
REASSESSMENT OF PAIN, PT IS ASLEEP, NO FACIAL GRIMACING.
[2022-12-07] MEDS: LACTATED RINGERS 1,000 ML IV SCH ×2 (00:20→05:37)
[2022-12-07 04:00] VITALS: BP 134/84; PULSE 78; RESP 18; TEMP 97.1; O2SAT 97
[2022-12-07] MEDS: oxyCODONE/APAP 5/325 MG 1 TAB TAB PO PRN (06:12)
--- NOTE | 2022-12-07 07:08 | NUR ---
receive the patient from the scene shifter rn in rm [address] aox4 with admitting diagnosis of leucocytosis , pancreatitis . to monitor also the potassium level . will continue to monitor
[2022-12-07 07:57] VITALS: PULSE 89; RESP 20; O2SAT 98
[2022-12-07] MEDS ORDERED: POTASSIUM CHL 20 MEQ/NACL 0.9% 1,000 ML IV SCH (08:45)
[2022-12-07] MEDS ORDERED: PANTOPRAZOLE 40 MG TABEC PO SCH (09:00)
[2022-12-07] MEDS ORDERED: SPIRONOLACTONE 25 MG TAB PO SCH (09:00)
[2022-12-07] MEDS ORDERED: POTASSIUM CHLORIDE 10 MEQ TABER PO SCH (09:00)
[2022-12-07 09:05] LABS: ALBUMIN 2.8 g/dL (3.4-5.0); ANION GAP 16.6 (8-16); CARBON DIOXIDE 19.6 mmol/L (21-32); CREATININE 0.6 mg/dL (0.6-1.3); POTASSIUM 3.2 mmol/L (3.5-5.1); TOTAL BILIRUBIN 0.4 mg/dL (0.0-1.0)
[2022-12-07] MEDS: ENOXAPARIN 40 MG/0.4 ML SYR SUBQ SCH (10:00)
[2022-12-07] MEDS: TOPIRAMATE 25 MG TAB PO SCH (10:01)
[2022-12-07 10:52] VITALS: BP 134/84; PULSE 89; RESP 20; TEMP 97.1
--- NOTE | 2022-12-07 11:31 | NUR ---
discontinue intravenous port , identification band .no complain of pain at this tinme . brought to the lobby by the wheelchair with the to a wheelchair to a waiting private car to home
--- NOTE | 2022-12-10 11:32 | NUR ---
CALLED DR DREW GRAY'S OFFICE LOCATED AT [address] [place] [address]. SPOKE WITH BK WHO WAS ABLE TO INFORM ME THAT PATIENT HAD ALREADY SCHEDULED AN APPOINTMENT FOR 01/01/23 AT 0900.
[2022-12-12] MEDS ORDERED: ALPR0.5T2 PO (07:32)
[2022-12-12] MEDS ORDERED: OXYC5TAB4 PO (19:00)
== END 2022-12-07 11:25 | disposition home or self-care (01) | DRG 282 ==
LOC: MED 12:50 → MMU 17:22 → MTU 20:07
PROVIDERS: ADMIT Hospitalist; ATTEND Hospitalist
DX: K85.90 Acute pancreatitis without necrosis or infection, unspecified (principal); R65.10 Systemic inflammatory response syndrome (SIRS) of non-infectious origin without acute organ dysfunction; K76.0 Fatty (change of) liver, not elsewhere classified; D72.829 Elevated white blood cell count, unspecified; E66.9 Obesity, unspecified; G43.909 Migraine, unspecified, not intractable, without status migrainosus; K21.9 Gastro-esophageal reflux disease without esophagitis; E86.0 Dehydration; E87.6 Hypokalemia; F41.9 Anxiety disorder, unspecified; J45.909 Unspecified asthma, uncomplicated; I10 Essential (primary) hypertension; Z20.822 Contact with and (suspected) exposure to COVID-19; G40.909 Epilepsy, unspecified, not intractable, without status epilepticus; Z85.42 Personal history of malignant neoplasm of other parts of uterus; Z88.8 Allergy status to other drugs, medicaments and biological substances; Z91.041 Radiographic dye allergy status; Z82.5 Family history of asthma and other chronic lower respiratory diseases; Z68.36 Body mass index [BMI] 36.0-36.9, adult
CPT/HCPCS: 36415; 71045; 76705; 80053; 81003; 82570; 83690; 83735; 84100; 84478; 85025; 87040; 87081; 87086; 96361; 96374; 96375; 99285; C9113; J1170; J1650; J1885; J2001; J2270; J2405; J2543; J3480; J7030; J7060; J7120; Q0092

== ENCOUNTER 2023-01-18 09:13 | Day surgery (SDC) | payer OTHER ==
[~2023-01-18] VITALS: Ht 149.9 cm; Wt 82.6 kg
[~2023-01-18 09:13] MED LIST changes: -ALBU0.0912 IH; +ALPR0.5T2 PO; +OXYC-304 PO; +OXYC5TAB4 PO; -PRED20TA5 PO; +TOPI50TA PO
[2023-01-18] MEDS ORDERED: fentaNYL citrate 0.05 MG/ML VIAL ONE (10:36)
[2023-01-18] MEDS ORDERED: MIDAZOLAM 5 MG/5 ML VIAL ONE ×2 (10:36→11:14)
[2023-01-18] MEDS ORDERED: MIDAZOLAM 2 MG/2 ML VIAL ONE ×2 (11:22)
[2023-01-18] MEDS ORDERED: MIDAZOLAM 2 MG/2 ML VIAL IVP ONE (11:50)
[2023-01-18] MEDS ORDERED: fentaNYL citrate 0.05 MG/ML VIAL IVP ONE (11:50)
== END 2023-01-18 12:44 | disposition home or self-care (01) ==
LOC: MDS 09:13 → MMU 09:21 → MDS 12:44
PROVIDERS: ATTEND Internal Medicine Gastroenterology
DX: R10.13 Epigastric pain (principal); I10 Essential (primary) hypertension; G43.909 Migraine, unspecified, not intractable, without status migrainosus; G40.909 Epilepsy, unspecified, not intractable, without status epilepticus; Z90.710 Acquired absence of both cervix and uterus; Z88.8 Allergy status to other drugs, medicaments and biological substances; Z91.013 Allergy to seafood; Z79.899 Other long term (current) drug therapy
CPT/HCPCS: 36415; 43239; 86677; J2250; J3010

== ENCOUNTER 2023-01-27 19:59 | Emergency (ER) | payer OTHER ==
[~2023-01-27] VITALS: Ht 149.9 cm; Wt 83.5 kg
[2023-01-27 20:01] VITALS: BP 157/103; PULSE 102; RESP 16; TEMP 98.4; O2SAT 98
[2023-01-27] MEDS ORDERED: NACL 0.9% 1,000 ML IV ONE (20:15)
[2023-01-27 20:30] VITALS: TEMP 98.4
[2023-01-27] MEDS ORDERED: KETOROLAC 30 MG/ML VIAL IVP ONE (21:10)
[2023-01-27] MEDS ORDERED: ONDANSETRON 4 MG/2 ML VIAL IVP ONE (21:10)
[2023-01-27] MEDS ORDERED: LORazepam 2 MG/ML VIAL IVP ONE (21:10)
[2023-01-27 21:22] LABS: BASOPHILS # (AUTO) 0.1 K/uL (0.00-0.22); BASOPHILS % (AUTO) 0.7 % (0.0-2.0); EOSINOPHILS # (AUTO) 0.1 K/uL (0-0.4); EOSINOPHILS % (AUTO) 0.5 % (0.0-4.0); HEMATOCRIT 36.9 % (36-48); HEMOGLOBIN 12.3 g/dL (12.0-16.0); LYMPHOCYTES # (AUTO) 2.1 K/uL (2.5-16.5); LYMPHOCYTES % (AUTO) 17.3 % (20.5-51.1); MEAN CORPUSCULAR HEMOGLOBIN 27 pg (27-31); MEAN CORPUSCULAR HGB CONC 33 g/dL (33-37); MEAN CORPUSCULAR VOLUME 81.6 fL (80-94); MONOCYTES # (AUTO) 0.7 K/uL (0.8-1.0); MONOCYTES % (AUTO) 5.4 % (1.7-9.3); NEUTROPHILS # (AUTO) 9.3 K/uL (1.8-7.7); NEUTROPHILS % (AUTO) 76.1 % (42.2-75.2); PLATELET COUNT (AUTO) 283 K/uL (140-450); RED BLOOD CELL COUNT(AUTO) 4.52 MIL/uL (4.20-5.40); RED CELL DISTRIBUTION WIDTH 14.7 % (11.6-13.7); WHITE BLOOD COUNT (AUTO) 12.2 K/uL (4.8-10.8)
[2023-01-27] MEDS ORDERED: diphenhydrAMINE 50 MG/ML VIAL IVP ONE (21:35)
[2023-01-27 21:43] LABS: ALBUMIN 3.9 g/dL (3.4-5.0); ANION GAP 14.6 (8-16); CREATININE 0.8 mg/dL (0.6-1.3); POTASSIUM 3.6 mmol/L (3.5-5.1); TOTAL BILIRUBIN 0.6 mg/dL (0.0-1.0); TOTAL PROTEIN, SERUM 8.2 g/dL (6.4-8.2)
[2023-01-27] MEDS ORDERED: ONDA8TAB87 PO (22:11)
[2023-01-27] MEDS ORDERED: ATA25 PO (22:11)
[2023-01-27] MEDS ORDERED: MORPHINE SULFATE 4 MG/ML SYR IVP ONE (22:15)
[2023-01-27 23:15] VITALS: BP 113/74; PULSE 82; RESP 20; O2SAT 97
== END 2023-01-27 23:15 | disposition home or self-care (01) ==
LOC: MED 19:59
DX: R10.13 Epigastric pain (principal); R11.2 Nausea with vomiting, unspecified; R19.7 Diarrhea, unspecified; K21.9 Gastro-esophageal reflux disease without esophagitis; I10 Essential (primary) hypertension; Z86.73 Personal history of transient ischemic attack (TIA), and cerebral infarction without residual deficits; Z86.69 Personal history of other diseases of the nervous system and sense organs; Z98.890 Other specified postprocedural states; Z90.710 Acquired absence of both cervix and uterus; Z79.899 Other long term (current) drug therapy; Z79.1 Long term (current) use of non-steroidal anti-inflammatories (NSAID); Z88.8 Allergy status to other drugs, medicaments and biological substances; Z91.013 Allergy to seafood
CPT/HCPCS: 36415; 80053; 81025; 83690; 85025; 96361; 96374; 96375; 99284; J1200; J1885; J2060; J2270; J2405; J7030

== ENCOUNTER 2023-03-07 10:28 | Emergency (ER) | payer OTHER ==
[~2023-03-07] VITALS: Ht 149.9 cm; Wt 83.9 kg
[~2023-03-07 10:28] MED LIST changes: +ATA25 PO; +ONDA8TAB87 PO
[2023-03-07 10:42] VITALS: BP 140/88; PULSE 91; RESP 15; TEMP 98.7; O2SAT 96
[2023-03-07] MEDS ORDERED: HYDROcodone/APAP 5/325 MG 1 TAB TAB PO ONE (12:20)
[2023-03-07] MEDS ORDERED: ONDANSETRON 4 MG ODT PO ONE (12:20)
[2023-03-07 12:58] LABS: BASOPHILS % (AUTO) 0.4 % (0.0-2.0); EOSINOPHILS # (AUTO) 0.2 K/uL (0-0.4); EOSINOPHILS % (AUTO) 1.7 % (0.0-4.0); HEMATOCRIT 38.7 % (36-48); HEMOGLOBIN 12.9 g/dL (12.0-16.0); LYMPHOCYTES # (AUTO) 2.7 K/uL (2.5-16.5); MEAN CORPUSCULAR HEMOGLOBIN 27 pg (27-31); MEAN CORPUSCULAR HGB CONC 33 g/dL (33-37); MEAN CORPUSCULAR VOLUME 81.9 fL (80-94); MONOCYTES # (AUTO) 0.7 K/uL (0.8-1.0); MONOCYTES % (AUTO) 5.9 % (1.7-9.3); NEUTROPHILS # (AUTO) 7.5 K/uL (1.8-7.7); PLATELET COUNT (AUTO) 283 K/uL (140-450); RED BLOOD CELL COUNT(AUTO) 4.73 MIL/uL (4.20-5.40); RED CELL DISTRIBUTION WIDTH 13.8 % (11.6-13.7); WHITE BLOOD COUNT (AUTO) 11.1 K/uL (4.8-10.8)
[2023-03-07 13:20] LABS: ANION GAP 15.3 (8-16); CALCIUM 8.9 mg/dL (8.5-10.1); CARBON DIOXIDE 22.4 mmol/L (21-32); CREATININE 0.7 mg/dL (0.6-1.3); POTASSIUM 3.7 mmol/L (3.5-5.1); TOTAL BILIRUBIN 0.6 mg/dL (0.0-1.0); TOTAL PROTEIN, SERUM 7.9 g/dL (6.4-8.2)
[2023-03-07] MEDS ORDERED: HYDR-5191 PO (14:03)
[2023-03-07] MEDS ORDERED: ONDA-188 SL (14:03)
[2023-03-07 14:23] VITALS: BP 140/88; PULSE 91; RESP 15; TEMP 98.7; O2SAT 96
[2023-03-08] MEDS ORDERED: ACET-5636 PO (10:02)
== END 2023-03-07 14:23 | disposition home or self-care (01) ==
LOC: MED 10:28
DX: K85.90 Acute pancreatitis without necrosis or infection, unspecified (principal); I10 Essential (primary) hypertension; K21.9 Gastro-esophageal reflux disease without esophagitis; Z91.013 Allergy to seafood; Z88.8 Allergy status to other drugs, medicaments and biological substances; Z79.899 Other long term (current) drug therapy; Z86.73 Personal history of transient ischemic attack (TIA), and cerebral infarction without residual deficits; Z90.710 Acquired absence of both cervix and uterus
CPT/HCPCS: 36415; 74176; 80053; 83690; 84703; 85025; 99284; Q0162

== ENCOUNTER 2023-03-08 07:00 | Inpatient (IN) | payer OTHER ==
[~2023-03-08] VITALS: Ht 149.9 cm; Wt 83.9 kg
[~2023-03-08 07:00] MED LIST changes: +HYDR-5191 PO; +ONDA-188 SL
[2023-03-08 07:23] VITALS: BP 148/87; PULSE 93; RESP 18; TEMP 98.9; O2SAT 98
[2023-03-08] MEDS ORDERED: NACL 0.9% 1,000 ML IV SCH (07:50)
[2023-03-08] MEDS ORDERED: ONDANSETRON 4 MG/2 ML VIAL IVP ONE (07:50)
[2023-03-08] MEDS ORDERED: MORPHINE SULFATE 4 MG/ML SYR IVP ONE ×3 (07:50→11:00)
[2023-03-08 08:40] LABS: BASOPHILS # (AUTO) 0.1 K/uL (0.00-0.22); BASOPHILS % (AUTO) 0.7 % (0.0-2.0); EOSINOPHILS # (AUTO) 0.2 K/uL (0-0.4); EOSINOPHILS % (AUTO) 1.9 % (0.0-4.0); HEMATOCRIT 39.3 % (36-48); LYMPHOCYTES % (AUTO) 18.9 % (20.5-51.1); MEAN CORPUSCULAR HEMOGLOBIN 27 pg (27-31); MEAN CORPUSCULAR HGB CONC 33 g/dL (33-37); MEAN CORPUSCULAR VOLUME 81.8 fL (80-94); MONOCYTES # (AUTO) 0.5 K/uL (0.8-1.0); MONOCYTES % (AUTO) 4.4 % (1.7-9.3); NEUTROPHILS % (AUTO) 74.1 % (42.2-75.2); PLATELET COUNT (AUTO) 278 K/uL (140-450); RED BLOOD CELL COUNT(AUTO) 4.81 MIL/uL (4.20-5.40); RED CELL DISTRIBUTION WIDTH 13.9 % (11.6-13.7); WHITE BLOOD COUNT (AUTO) 10.8 K/uL (4.8-10.8)
[2023-03-08 08:59] LABS: LACTIC ACID 1.6 mmol/L (0.4-2.0)
[2023-03-08 09:07] LABS: ALBUMIN 4.1 g/dL (3.4-5.0); ANION GAP 13.3 (8-16); CALCIUM 9.3 mg/dL (8.5-10.1); CARBON DIOXIDE 24.6 mmol/L (21-32); CREATININE 0.7 mg/dL (0.6-1.3); POTASSIUM 3.9 mmol/L (3.5-5.1); TOTAL BILIRUBIN 0.4 mg/dL (0.0-1.0); TOTAL PROTEIN, SERUM 8.2 g/dL (6.4-8.2)
[2023-03-08] MEDS ORDERED: LACTATED RINGERS 1,000 ML IV ONE ×3 (09:45→11:05)
[2023-03-08] MEDS ORDERED: ACET-5636 PO (10:02)
[2023-03-08] MEDS ORDERED: POTASSIUM CHLORIDE 10 MEQ TABER PO PRN (11:25)
[2023-03-08] MEDS ORDERED: ACETAMINOPHEN 325 MG TAB PO PRN (11:25)
[2023-03-08] MEDS ORDERED: ONDANSETRON 4 MG/2 ML VIAL IVP PRN (11:25)
[2023-03-08] MEDS ORDERED: HYDROcodone/APAP 5/325 MG 1 TAB TAB PO PRN (11:25)
[2023-03-08] MEDS ORDERED: KCL 20 MEQ IN 100 mL PREMIX 200 ML IV PRN (11:25)
[2023-03-08] MEDS ORDERED: MAGNESIUM OXIDE 400 MG TAB PO PRN (11:25)
[2023-03-08] MEDS ORDERED: MORPHINE SULFATE 2 MG/ML SYR IVP PRN (11:25)
[2023-03-08] MEDS ORDERED: MAG SULF 2000 MG/WATER PREMIX 50 ML IV PRN (11:25)
[2023-03-08] MEDS: LACTATED RINGERS 1,000 ML IV SCH ×3 (14:38→22:24)
[2023-03-08 16:21] VITALS: RESP 20; O2SAT 99
[2023-03-08 17:53] LABS: CHOL/HDL RATIO 3.5 (1-4.5)
[2023-03-08] MEDS: MORPHINE SULFATE 4 MG/ML SYR IVP PRN (19:04)
[2023-03-08 20:00] VITALS: BP 154/72; PULSE 63; RESP 16; TEMP 97.2; O2SAT 97
[2023-03-08] MEDS: TOPIRAMATE 25 MG TAB PO SCH (20:52)
[2023-03-08] MEDS: ALPRAZolam 0.5 MG TAB PO SCH (20:53)
[2023-03-09] MEDS: MORPHINE SULFATE 4 MG/ML SYR IVP PRN ×4 (00:30→20:49)
[2023-03-09 04:00] VITALS: BP 139/77; PULSE 84; RESP 18; TEMP 98.5; O2SAT 94
[2023-03-09 06:27] LABS: BASOPHILS # (AUTO) 0.1 K/uL (0.00-0.22); BASOPHILS % (AUTO) 0.6 % (0.0-2.0); EOSINOPHILS # (AUTO) 0.3 K/uL (0-0.4); EOSINOPHILS % (AUTO) 3.3 % (0.0-4.0); HEMATOCRIT 34.2 % (36-48); HEMOGLOBIN 11.4 g/dL (12.0-16.0); LYMPHOCYTES # (AUTO) 2.6 K/uL (2.5-16.5); LYMPHOCYTES % (AUTO) 29.7 % (20.5-51.1); MEAN CORPUSCULAR HEMOGLOBIN 27 pg (27-31); MEAN CORPUSCULAR HGB CONC 33 g/dL (33-37); MEAN CORPUSCULAR VOLUME 81.5 fL (80-94); MONOCYTES # (AUTO) 0.6 K/uL (0.8-1.0); MONOCYTES % (AUTO) 6.7 % (1.7-9.3); NEUTROPHILS # (AUTO) 5.2 K/uL (1.8-7.7); NEUTROPHILS % (AUTO) 59.7 % (42.2-75.2); PLATELET COUNT (AUTO) 265 K/uL (140-450); RED CELL DISTRIBUTION WIDTH 13.3 % (11.6-13.7); WHITE BLOOD COUNT (AUTO) 8.7 K/uL (4.8-10.8)
[2023-03-09 06:43] LABS: ALBUMIN 3.4 g/dL (3.4-5.0); ANION GAP 11.1 (8-16); CALCIUM 8.9 mg/dL (8.5-10.1); CARBON DIOXIDE 24.5 mmol/L (21-32); CREATININE 0.6 mg/dL (0.6-1.3); MAGNESIUM 2.1 mg/dL (1.8-2.4); POTASSIUM 3.6 mmol/L (3.5-5.1); TOTAL BILIRUBIN 0.7 mg/dL (0.0-1.0); TOTAL PROTEIN, SERUM 6.8 g/dL (6.4-8.2)
[2023-03-09 08:00] VITALS: BP 120/74; PULSE 66; RESP 18; TEMP 98.1; O2SAT 99
[2023-03-09] MEDS: TOPIRAMATE 25 MG TAB PO SCH ×2 (08:11→20:55)
[2023-03-09] MEDS: LACTATED RINGERS 1,000 ML IV SCH ×3 (08:11→21:17)
[2023-03-09] MEDS: oxyCODONE/APAP 5/325 MG 1 TAB TAB PO PRN ×2 (10:15→18:00)
[2023-03-09 11:00] VITALS: O2SAT 98
[2023-03-09 16:00] VITALS: BP 118/65; PULSE 58; RESP 18; TEMP 97.5; O2SAT 99
[2023-03-09 20:00] VITALS: BP 106/60; PULSE 60; RESP 18; TEMP 97.4; O2SAT 97
[2023-03-09] MEDS: SENNA 8.6 MG TAB PO SCH (20:54)
[2023-03-09] MEDS: ALPRAZolam 0.5 MG TAB PO SCH (20:56)
[2023-03-10 04:00] VITALS: BP 111/60; PULSE 52; RESP 18; TEMP 97.1; O2SAT 97
[2023-03-10 06:55] LABS: BASOPHILS % (AUTO) 0.6 % (0.0-2.0); EOSINOPHILS # (AUTO) 0.3 K/uL (0-0.4); EOSINOPHILS % (AUTO) 3.9 % (0.0-4.0); HEMATOCRIT 34.6 % (36-48); HEMOGLOBIN 11.6 g/dL (12.0-16.0); LYMPHOCYTES # (AUTO) 2.9 K/uL (2.5-16.5); LYMPHOCYTES % (AUTO) 36.6 % (20.5-51.1); MEAN CORPUSCULAR HEMOGLOBIN 27 pg (27-31); MEAN CORPUSCULAR HGB CONC 33 g/dL (33-37); MEAN CORPUSCULAR VOLUME 81.7 fL (80-94); MONOCYTES # (AUTO) 0.6 K/uL (0.8-1.0); MONOCYTES % (AUTO) 7.1 % (1.7-9.3); NEUTROPHILS # (AUTO) 4.1 K/uL (1.8-7.7); NEUTROPHILS % (AUTO) 51.8 % (42.2-75.2); PLATELET COUNT (AUTO) 253 K/uL (140-450); RED BLOOD CELL COUNT(AUTO) 4.23 MIL/uL (4.20-5.40); RED CELL DISTRIBUTION WIDTH 13.6 % (11.6-13.7); WHITE BLOOD COUNT (AUTO) 7.8 K/uL (4.8-10.8)
[2023-03-10 07:04] LABS: ALBUMIN 3.4 g/dL (3.4-5.0); ANION GAP 12.4 (8-16); CALCIUM 9.2 mg/dL (8.5-10.1); CARBON DIOXIDE 23.1 mmol/L (21-32); CREATININE 0.7 mg/dL (0.6-1.3); MAGNESIUM 2.2 mg/dL (1.8-2.4); POTASSIUM 3.5 mmol/L (3.5-5.1); TOTAL BILIRUBIN 0.5 mg/dL (0.0-1.0); TOTAL PROTEIN, SERUM 6.8 g/dL (6.4-8.2)
[2023-03-10] MEDS: TOPIRAMATE 25 MG TAB PO SCH (08:35)
[2023-03-10] MEDS: MORPHINE SULFATE 4 MG/ML SYR IVP PRN (08:38)
[2023-03-10] MEDS: SENNA 8.6 MG TAB PO SCH (08:38)
[2023-03-10 08:59] VITALS: BP 123/71; PULSE 55; RESP 17; TEMP 97
[2023-03-10] MEDS: LACTATED RINGERS 1,000 ML IV SCH (10:45)
== END 2023-03-10 11:20 | disposition home or self-care (01) | DRG 282 ==
LOC: MED 07:00 → MTU 11:27
PROVIDERS: ADMIT Internal Medicine; ATTEND Internal Medicine
DX: K85.90 Acute pancreatitis without necrosis or infection, unspecified (principal); R65.10 Systemic inflammatory response syndrome (SIRS) of non-infectious origin without acute organ dysfunction; K76.0 Fatty (change of) liver, not elsewhere classified; E66.9 Obesity, unspecified; G40.909 Epilepsy, unspecified, not intractable, without status epilepticus; G89.4 Chronic pain syndrome; K86.3 Pseudocyst of pancreas; Z68.37 Body mass index [BMI] 37.0-37.9, adult; Z85.42 Personal history of malignant neoplasm of other parts of uterus; Z88.8 Allergy status to other drugs, medicaments and biological substances; Z91.041 Radiographic dye allergy status; Z91.013 Allergy to seafood; Z79.899 Other long term (current) drug therapy; Z90.710 Acquired absence of both cervix and uterus
CPT/HCPCS: 36415; 76705; 80053; 83605; 83690; 83735; 85025; 87040; 87081; 96361; 96374; 96375; 96376; 99285; J2270; J2405; Q0092

== ENCOUNTER 2023-05-25 09:41 | Observation (INO) | payer OTHER ==
[~2023-05-25] VITALS: Ht 149.9 cm; Wt 81.6 kg
[~2023-05-25 09:41] MED LIST changes: +ACET-5636 PO; -ATA25 PO; -HYDR-5191 PO; -IBUP-2213 PO; -ONDA8TAB87 PO; -OXYC-304 PO; -OXYC5TAB4 PO
[2023-05-25 09:48] VITALS: BP 134/83; PULSE 97; RESP 18; TEMP 97.9; O2SAT 99
[2023-05-25] MEDS ORDERED: cefTRIAXone 1,000 MG in DEXT 5% MINI-BAG PLUS 50 ML IV ONE (10:00)
[2023-05-25] MEDS ORDERED: NACL 0.9% 1,000 ML IV SCH (10:00)
[2023-05-25] MEDS ORDERED: cefTRIAXone 1,000 MG VIAL ONE (10:04)
[2023-05-25 10:16] LABS: BASOPHILS # (AUTO) 0.1 K/uL (0.00-0.22); BASOPHILS % (AUTO) 0.8 % (0.0-2.0); EOSINOPHILS # (AUTO) 0.6 K/uL (0-0.4); EOSINOPHILS % (AUTO) 6.7 % (0.0-4.0); HEMATOCRIT 35.4 % (36-48); LYMPHOCYTES # (AUTO) 2.5 K/uL (2.5-16.5); LYMPHOCYTES % (AUTO) 27.8 % (20.5-51.1); MEAN CORPUSCULAR HEMOGLOBIN 27 pg (27-31); MEAN CORPUSCULAR HGB CONC 34 g/dL (33-37); MEAN CORPUSCULAR VOLUME 80.8 fL (80-94); MONOCYTES # (AUTO) 0.6 K/uL (0.8-1.0); MONOCYTES % (AUTO) 7.1 % (1.7-9.3); NEUTROPHILS # (AUTO) 5.2 K/uL (1.8-7.7); NEUTROPHILS % (AUTO) 57.6 % (42.2-75.2); PLATELET COUNT (AUTO) 251 K/uL (140-450); RED BLOOD CELL COUNT(AUTO) 4.38 MIL/uL (4.20-5.40); RED CELL DISTRIBUTION WIDTH 14.8 % (11.6-13.7)
[2023-05-25 10:23] LABS: ANION GAP 16.4 (8-16); CALCIUM 9.4 mg/dL (8.5-10.1); CARBON DIOXIDE 23.3 mmol/L (21-32); CREATININE 0.7 mg/dL (0.6-1.3); POTASSIUM 3.7 mmol/L (3.5-5.1)
[2023-05-25 10:26] LABS: BILIRUBIN,URINE NEGATIVE (NEGATIVE); BLOOD, URINE 1+ (NEGATIVE); LEUKOCYTE ESTERASE ,URINE NEGATIVE (NEGATIVE); NITRITE, URINE NEGATIVE (NEGATIVE); PROTEIN,URINE NEGATIVE (NEGATIVE); UGLUCOSE NEGATIVE (NEGATIVE); UROBILINOGEN,URINE 0.2 EU/dL (0.2 - 1)
[2023-05-25 10:27] LABS: APPEARANCE,URINE SLIGHTLY HAZY (CLEAR); BACTERIA,URINE FEW /HPF (None Seen); COLOR,URINE YELLOW (YELLOW); RBC,URINE 0-5 /HPF (0-5); WBC,URINE 0-5 /HPF (0-5)
[2023-05-25 10:32] LABS: ALBUMIN 3.7 g/dL (3.4-5.0); BILIRUBIN,DIRECT 0.2 mg/dL (0.0-0.3); LACTIC ACID 1.3 mmol/L (0.4-2.0); TOTAL BILIRUBIN 0.7 mg/dL (0.0-1.0)
[2023-05-25] MEDS ORDERED: MORPHINE SULFATE 4 MG/ML SYR IVP ONE (10:40)
[2023-05-25] MEDS ORDERED: fentaNYL citrate 0.05 MG/ML VIAL IVP ONE (11:20)
[2023-05-25] MEDS ORDERED: [UNRECOGNIZED DRUG - CODE] PO (13:18)
[2023-05-25] MEDS ORDERED: ACETAMINOPHEN 325 MG TAB PO PRN (14:00)
[2023-05-25] MEDS ORDERED: POTASSIUM CHLORIDE 10 MEQ TABER PO PRN (14:00)
[2023-05-25] MEDS ORDERED: VANCOMYCIN PER PHARMACY MC PRN (14:00)
[2023-05-25] MEDS ORDERED: ONDANSETRON 4 MG/2 ML VIAL IVP PRN (14:00)
[2023-05-25] MEDS: NACL 0.9% 1,000 ML IV SCH (15:08)
[2023-05-25] MEDS: MORPHINE SULFATE 4 MG/ML SYR IVP PRN ×2 (15:13→20:23)
[2023-05-25 15:24] VITALS: RESP 18; O2SAT 98
[2023-05-25 15:33] VITALS: BP 136/82; PULSE 86; RESP 18; TEMP 97.2; O2SAT 98
[2023-05-25] MEDS: VANCOMYCIN 1,000 MG in DEXTROSE 5% 250 ML IV SCH (15:40)
[2023-05-25] MEDS ORDERED: NACL 0.9% IRR 250 ML BOTTLE IR PRN (16:35)
[2023-05-25] MEDS: HYDROcodone/APAP 5/325 MG 1 TAB TAB PO PRN (17:14)
[2023-05-25 20:00] VITALS: BP 135/94; PULSE 74; RESP 18; TEMP 98.8; O2SAT 97
[2023-05-26] MEDS: HYDROcodone/APAP 5/325 MG 1 TAB TAB PO PRN (01:28)
[2023-05-26] MEDS: NACL 0.9% 1,000 ML IV SCH (02:30)
[2023-05-26] MEDS: VANCOMYCIN 1,000 MG in DEXTROSE 5% 250 ML IV SCH (03:36)
[2023-05-26 04:00] VITALS: BP 118/70; PULSE 62; RESP 18; TEMP 97.5; O2SAT 98
[2023-05-26 05:51] LABS: BASOPHILS # (AUTO) 0.1 K/uL (0.00-0.22); BASOPHILS % (AUTO) 0.8 % (0.0-2.0); EOSINOPHILS # (AUTO) 0.7 K/uL (0-0.4); EOSINOPHILS % (AUTO) 7.7 % (0.0-4.0); HEMATOCRIT 34.8 % (36-48); HEMOGLOBIN 11.7 g/dL (12.0-16.0); LYMPHOCYTES % (AUTO) 31.9 % (20.5-51.1); MEAN CORPUSCULAR HEMOGLOBIN 27 pg (27-31); MEAN CORPUSCULAR HGB CONC 34 g/dL (33-37); MEAN CORPUSCULAR VOLUME 81.4 fL (80-94); MONOCYTES # (AUTO) 0.7 K/uL (0.8-1.0); MONOCYTES % (AUTO) 7.1 % (1.7-9.3); NEUTROPHILS # (AUTO) 4.9 K/uL (1.8-7.7); NEUTROPHILS % (AUTO) 52.5 % (42.2-75.2); PLATELET COUNT (AUTO) 237 K/uL (140-450); RED BLOOD CELL COUNT(AUTO) 4.28 MIL/uL (4.20-5.40); RED CELL DISTRIBUTION WIDTH 14.9 % (11.6-13.7); WHITE BLOOD COUNT (AUTO) 9.4 K/uL (4.8-10.8)
[2023-05-26] MEDS: MORPHINE SULFATE 4 MG/ML SYR IVP PRN (06:03)
[2023-05-26 06:23] LABS: ANION GAP 14.7 (8-16); CALCIUM 9.5 mg/dL (8.5-10.1); CARBON DIOXIDE 23.9 mmol/L (21-32); CREATININE 0.7 mg/dL (0.6-1.3); POTASSIUM 3.6 mmol/L (3.5-5.1)
[2023-05-26] MEDS ORDERED: DOCUSATE SODIUM 100 MG GELCAP PO SCH (09:00)
[2023-05-26 09:22] VITALS: PULSE 74; RESP 18; O2SAT 100
[2023-05-26 09:23] VITALS: BP 138/70; PULSE 74; RESP 18; TEMP 98.6; O2SAT 100
[2023-05-26] MEDS ORDERED: AMOX1TAB15 PO (11:26)
[2023-05-26 11:46] VITALS: BP 138/70; PULSE 74; RESP 18; TEMP 98.3
[2023-05-26] MEDS ORDERED: GAUZE TP SCH ×2 (13:00)
== END 2023-05-26 12:35 | disposition home or self-care (01) ==
LOC: MED 09:41 → MTU 14:02
PROVIDERS: ADMIT Student in an Organized Health Care Education/Training Program; ATTEND Student in an Organized Health Care Education/Training Program
DX: A41.9 Sepsis, unspecified organism (principal); L03.311 Cellulitis of abdominal wall; C25.9 Malignant neoplasm of pancreas, unspecified; E86.1 Hypovolemia; K21.9 Gastro-esophageal reflux disease without esophagitis; Z86.73 Personal history of transient ischemic attack (TIA), and cerebral infarction without residual deficits; Z90.710 Acquired absence of both cervix and uterus; Z79.899 Other long term (current) drug therapy
CPT/HCPCS: 36415; 71045; 74176; 80048; 80076; 81001; 83605; 83690; 83880; 85025; 87040; 87081; 87086; 96365; 96366; 96367; 96372; 96375; 96376; 99285; G0378; J0696; J1644; J2270; J3010; J3370; J7060

== ENCOUNTER 2023-06-03 16:12 | Emergency (ER) | payer OTHER ==
[~2023-06-03] VITALS: Ht 149.9 cm; Wt 78.6 kg
[~2023-06-03 16:12] MED LIST changes: +AMOX1TAB15 PO; -ONDA-188 SL; -TOPI50TA PO; +[UNRECOGNIZED DRUG - CODE] PO
[2023-06-03 16:47] VITALS: BP 143/93; PULSE 76; RESP 20; TEMP 98.1; O2SAT 99
[2023-06-03 17:28] LABS: BASOPHILS % (AUTO) 0.7 % (0.0-2.0); EOSINOPHILS # (AUTO) 0.2 K/uL (0-0.4); EOSINOPHILS % (AUTO) 3.7 % (0.0-4.0); HEMATOCRIT 34.4 % (36-48); HEMOGLOBIN 11.6 g/dL (12.0-16.0); LYMPHOCYTES # (AUTO) 2.1 K/uL (2.5-16.5); LYMPHOCYTES % (AUTO) 40.8 % (20.5-51.1); MEAN CORPUSCULAR HEMOGLOBIN 27 pg (27-31); MEAN CORPUSCULAR HGB CONC 34 g/dL (33-37); MEAN CORPUSCULAR VOLUME 80.7 fL (80-94); MONOCYTES # (AUTO) 0.6 K/uL (0.8-1.0); MONOCYTES % (AUTO) 11.4 % (1.7-9.3); NEUTROPHILS # (AUTO) 2.2 K/uL (1.8-7.7); NEUTROPHILS % (AUTO) 43.4 % (42.2-75.2); PLATELET COUNT (AUTO) 261 K/uL (140-450); RED BLOOD CELL COUNT(AUTO) 4.26 MIL/uL (4.20-5.40); RED CELL DISTRIBUTION WIDTH 14.7 % (11.6-13.7); WHITE BLOOD COUNT (AUTO) 5.1 K/uL (4.8-10.8)
[2023-06-03 17:44] LABS: ANION GAP 13.8 (8-16); CALCIUM 9.1 mg/dL (8.5-10.1); CARBON DIOXIDE 23.9 mmol/L (21-32); CREATININE 0.6 mg/dL (0.6-1.3); POTASSIUM 3.7 mmol/L (3.5-5.1)
[2023-06-03] MEDS ORDERED: HYDROmorphone PFS 2 MG/ML SYR IVP ONE ×2 (18:00→22:55)
[2023-06-03] MEDS ORDERED: HYDROmorphone PFS 2 MG/ML SYR ONE (19:58)
[2023-06-04 01:11] VITALS: BP 143/93; PULSE 76; RESP 20; TEMP 98.1; O2SAT 99
== END 2023-06-04 01:11 | disposition short-term general hospital (02) ==
LOC: MED 16:12
DX: R10.9 Unspecified abdominal pain (principal); Z91.013 Allergy to seafood; Z79.899 Other long term (current) drug therapy
CPT/HCPCS: 36415; 74176; 80048; 85025; 96374; 96376; 99285; J1170

== ENCOUNTER 2023-06-16 10:47 | Emergency (ER) | payer OTHER ==
[~2023-06-16] VITALS: Ht 149.9 cm; Wt 78.0 kg
[2023-06-16 10:49] VITALS: BP 143/107; PULSE 101; RESP 21; TEMP 98.9; O2SAT 99
[2023-06-16] MEDS ORDERED: KETOROLAC 30 MG/ML VIAL IVP ONE (12:00)
[2023-06-16 12:22] LABS: BASOPHILS # (AUTO) 0.1 K/uL (0.00-0.22); BASOPHILS % (AUTO) 0.6 % (0.0-2.0); EOSINOPHILS # (AUTO) 0.1 K/uL (0-0.4); EOSINOPHILS % (AUTO) 0.7 % (0.0-4.0); HEMATOCRIT 37.1 % (36-48); HEMOGLOBIN 12.4 g/dL (12.0-16.0); LYMPHOCYTES # (AUTO) 1.7 K/uL (2.5-16.5); LYMPHOCYTES % (AUTO) 14.9 % (20.5-51.1); MEAN CORPUSCULAR HEMOGLOBIN 27 pg (27-31); MEAN CORPUSCULAR HGB CONC 33 g/dL (33-37); MEAN CORPUSCULAR VOLUME 80.2 fL (80-94); MONOCYTES # (AUTO) 0.6 K/uL (0.8-1.0); MONOCYTES % (AUTO) 4.9 % (1.7-9.3); NEUTROPHILS # (AUTO) 8.9 K/uL (1.8-7.7); NEUTROPHILS % (AUTO) 78.9 % (42.2-75.2); PLATELET COUNT (AUTO) 310 K/uL (140-450); RED BLOOD CELL COUNT(AUTO) 4.62 MIL/uL (4.20-5.40); RED CELL DISTRIBUTION WIDTH 15.5 % (11.6-13.7); WHITE BLOOD COUNT (AUTO) 11.3 K/uL (4.8-10.8)
[2023-06-16 12:50] LABS: ALBUMIN 3.9 g/dL (3.4-5.0); BILIRUBIN,DIRECT 0.1 mg/dL (0.0-0.3); TOTAL BILIRUBIN 0.5 mg/dL (0.0-1.0); TOTAL PROTEIN, SERUM 8.1 g/dL (6.4-8.2)
[2023-06-16 13:04] LABS: ANION GAP 15.6 (8-16); CALCIUM 9.4 mg/dL (8.5-10.1); CREATININE 0.5 mg/dL (0.6-1.3); POTASSIUM 3.6 mmol/L (3.5-5.1)
[2023-06-16] MEDS ORDERED: ONDANSETRON 4 MG/2 ML VIAL IVP ONE (13:25)
[2023-06-16] MEDS ORDERED: MORPHINE SULFATE 4 MG/ML SYR IVP ONE (13:25)
[2023-06-16] MEDS ORDERED: ACET-512 PO (13:52)
[2023-06-16 14:55] VITALS: BP 132/76; PULSE 95; RESP 21; TEMP 98.9; O2SAT 99
== END 2023-06-16 14:56 | disposition home or self-care (01) ==
LOC: MED 10:47
DX: R10.13 Epigastric pain (principal); R11.2 Nausea with vomiting, unspecified; Z86.69 Personal history of other diseases of the nervous system and sense organs; Z98.890 Other specified postprocedural states; Z79.899 Other long term (current) drug therapy; Z79.2 Long term (current) use of antibiotics; Z88.8 Allergy status to other drugs, medicaments and biological substances; Z91.013 Allergy to seafood
CPT/HCPCS: 36415; 74176; 80048; 80076; 81002; 81025; 82150; 83690; 85025; 96374; 96375; 99285; J1885; J2270; J2405

== ENCOUNTER 2023-08-11 16:40 | Emergency (ER) | payer OTHER ==
[~2023-08-11] VITALS: Ht 149.9 cm; Wt 81.6 kg
[~2023-08-11 16:40] MED LIST changes: +ACET-512 PO
[2023-08-11 16:54] VITALS: BP 160/102; PULSE 84; RESP 18; TEMP 98.3; O2SAT 97
[2023-08-11 17:39] LABS: APPEARANCE,URINE SL CLOUDY (CLEAR); BILIRUBIN,URINE NEGATIVE (NEGATIVE); BLOOD, URINE NEGATIVE (NEGATIVE); COLOR,URINE YELLOW (YELLOW); LEUKOCYTE ESTERASE ,URINE NEGATIVE (NEGATIVE); NITRITE, URINE NEGATIVE (NEGATIVE); PROTEIN,URINE NEGATIVE (NEGATIVE); UGLUCOSE NEGATIVE (NEGATIVE); UROBILINOGEN,URINE 0.2 EU/dL (0.2 - 1)
[2023-08-11 17:41] LABS: BASOPHILS # (AUTO) 0.1 K/uL (0.00-0.22); BASOPHILS % (AUTO) 0.8 % (0.0-2.0); EOSINOPHILS # (AUTO) 0.3 K/uL (0-0.4); EOSINOPHILS % (AUTO) 3.2 % (0.0-4.0); HEMATOCRIT 35.7 % (36-48); HEMOGLOBIN 12.2 g/dL (12.0-16.0); LYMPHOCYTES # (AUTO) 3.2 K/uL (2.5-16.5); MEAN CORPUSCULAR HEMOGLOBIN 27 pg (27-31); MEAN CORPUSCULAR HGB CONC 34 g/dL (33-37); MEAN CORPUSCULAR VOLUME 79.8 fL (80-94); MONOCYTES # (AUTO) 0.7 K/uL (0.8-1.0); MONOCYTES % (AUTO) 6.8 % (1.7-9.3); NEUTROPHILS # (AUTO) 5.8 K/uL (1.8-7.7); NEUTROPHILS % (AUTO) 57.2 % (42.2-75.2); PLATELET COUNT (AUTO) 287 K/uL (140-450); RED BLOOD CELL COUNT(AUTO) 4.47 MIL/uL (4.20-5.40); RED CELL DISTRIBUTION WIDTH 13.4 % (11.6-13.7); WHITE BLOOD COUNT (AUTO) 10.1 K/uL (4.8-10.8)
[2023-08-11 17:54] LABS: CARBON DIOXIDE 23.6 mmol/L (21-32); CREATININE 0.7 mg/dL (0.6-1.3); POTASSIUM 3.6 mmol/L (3.5-5.1)
[2023-08-11 18:01] LABS: ALBUMIN 3.5 g/dL (3.4-5.0); BILIRUBIN,DIRECT 0.1 mg/dL (0.0-0.3); TOTAL BILIRUBIN 0.2 mg/dL (0.0-1.0); TOTAL PROTEIN, SERUM 8.3 g/dL (6.4-8.2)
[2023-08-11] MEDS: MORPHINE SULFATE 4 MG/ML SYR IVP ONE (18:04)
[2023-08-11] MEDS ORDERED: ONDA8TAB87 PO (18:53)
[2023-08-11 19:05] VITALS: BP 155/56; PULSE 84; RESP 18; TEMP 98.3; O2SAT 97
== END 2023-08-11 19:04 | disposition home or self-care (01) ==
LOC: MED 16:40
DX: R10.13 Epigastric pain (principal); I11.9 Hypertensive heart disease without heart failure; Z91.013 Allergy to seafood; Z79.899 Other long term (current) drug therapy
CPT/HCPCS: 36415; 74176; 80048; 80076; 81003; 81025; 83690; 85025; 96374; 99285; J2270

== ENCOUNTER 2023-10-12 12:48 | Emergency (ER) | payer OTHER ==
[~2023-10-12] VITALS: Ht 149.9 cm; Wt 78.9 kg
[~2023-10-12 12:48] MED LIST changes: +ONDA8TAB87 PO
[2023-10-12 12:59] VITALS: BP 159/109; PULSE 119; RESP 18; TEMP 98.7; O2SAT 99
[2023-10-12] MEDS: NACL 0.9% 1,000 ML IV ONE (15:39)
[2023-10-12] MEDS: ONDANSETRON 4 MG/2 ML VIAL IVP ONE (15:40)
[2023-10-12] MEDS: MORPHINE SULFATE 4 MG/ML SYR IVP ONE (15:42)
[2023-10-12 16:14] LABS: BASOPHILS # (AUTO) 0.1 K/uL (0.00-0.22); BASOPHILS % (AUTO) 0.3 % (0.0-2.0); EOSINOPHILS # (AUTO) 0.1 K/uL (0-0.4); EOSINOPHILS % (AUTO) 0.9 % (0.0-4.0); HEMATOCRIT 37.3 % (36-48); HEMOGLOBIN 12.6 g/dL (12.0-16.0); LYMPHOCYTES % (AUTO) 13.8 % (20.5-51.1); MEAN CORPUSCULAR HEMOGLOBIN 27 pg (27-31); MEAN CORPUSCULAR HGB CONC 34 g/dL (33-37); MEAN CORPUSCULAR VOLUME 79.9 fL (80-94); MONOCYTES # (AUTO) 0.9 K/uL (0.8-1.0); MONOCYTES % (AUTO) 5.8 % (1.7-9.3); NEUTROPHILS # (AUTO) 11.8 K/uL (1.8-7.7); NEUTROPHILS % (AUTO) 79.2 % (42.2-75.2); PLATELET COUNT (AUTO) 258 K/uL (140-450); RED BLOOD CELL COUNT(AUTO) 4.67 MIL/uL (4.20-5.40); RED CELL DISTRIBUTION WIDTH 13.4 % (11.6-13.7); WHITE BLOOD COUNT (AUTO) 14.9 K/uL (4.8-10.8)
[2023-10-12 16:15] LABS: APPEARANCE,URINE CLEAR (CLEAR); BILIRUBIN,URINE NEGATIVE (NEGATIVE); BLOOD, URINE NEGATIVE (NEGATIVE); COLOR,URINE YELLOW (YELLOW); LEUKOCYTE ESTERASE ,URINE NEGATIVE (NEGATIVE); NITRITE, URINE NEGATIVE (NEGATIVE); PH,URINE 5.5 (5.0-9.0); PROTEIN,URINE 2+ (NEGATIVE); UGLUCOSE TRACE (NEGATIVE); UROBILINOGEN,URINE 0.2 EU/dL (0.2 - 1)
[2023-10-12 16:27] LABS: ANION GAP 13.2 (8-16); CALCIUM 9.1 mg/dL (8.5-10.1); CARBON DIOXIDE 25.7 mmol/L (21-32); CREATININE 0.7 mg/dL (0.6-1.3); POTASSIUM 3.9 mmol/L (3.5-5.1)
[2023-10-12 16:34] LABS: ALBUMIN 3.7 g/dL (3.4-5.0); BILIRUBIN,DIRECT 0.1 mg/dL (0.0-0.3); MAGNESIUM 1.9 mg/dL (1.8-2.4); TOTAL BILIRUBIN 0.4 mg/dL (0.0-1.0); TOTAL PROTEIN, SERUM 7.7 g/dL (6.4-8.2)
[2023-10-12] MEDS ORDERED: SUCR1TAB56 PO (16:47)
[2023-10-12] MEDS ORDERED: FAMO-90 PO (16:47)
[2023-10-12] MEDS ORDERED: ONDA-188 SL (16:47)
[2023-10-12 17:15] VITALS: BP 123/84; PULSE 90; RESP 14; TEMP 98; O2SAT 98
== END 2023-10-12 17:15 | disposition home or self-care (01) ==
LOC: MED 12:48
DX: R10.12 Left upper quadrant pain (principal); R11.10 Vomiting, unspecified; R35.89 Other polyuria; E11.9 Type 2 diabetes mellitus without complications; I25.10 Atherosclerotic heart disease of native coronary artery without angina pectoris; Z91.040 Latex allergy status; Z79.899 Other long term (current) drug therapy; Z79.4 Long term (current) use of insulin
CPT/HCPCS: 36415; 80048; 80076; 81003; 81025; 83690; 83735; 84100; 85025; 96361; 96374; 96375; 99284; J2270; J2405

== ENCOUNTER 2023-11-05 09:39 | Emergency (ER) | payer OTHER ==
[~2023-11-05] VITALS: Ht 149.9 cm; Wt 80.7 kg
[~2023-11-05 09:39] MED LIST changes: +FAMO-90 PO; +ONDA-188 SL; +SUCR1TAB56 PO
[2023-11-05 09:42] VITALS: BP 180/99; PULSE 84; RESP 18; TEMP 97.8; O2SAT 98
[2023-11-05 10:13] LABS: BASOPHILS # (AUTO) 0.1 K/uL (0.00-0.22); BASOPHILS % (AUTO) 0.6 % (0.0-2.0); EOSINOPHILS # (AUTO) 0.2 K/uL (0-0.4); EOSINOPHILS % (AUTO) 2.1 % (0.0-4.0); HEMATOCRIT 37.1 % (36-48); HEMOGLOBIN 12.7 g/dL (12.0-16.0); LYMPHOCYTES # (AUTO) 2.3 K/uL (2.5-16.5); LYMPHOCYTES % (AUTO) 23.1 % (20.5-51.1); MEAN CORPUSCULAR HEMOGLOBIN 27 pg (27-31); MEAN CORPUSCULAR HGB CONC 34 g/dL (33-37); MEAN CORPUSCULAR VOLUME 80.1 fL (80-94); MONOCYTES # (AUTO) 0.5 K/uL (0.8-1.0); MONOCYTES % (AUTO) 5.5 % (1.7-9.3); NEUTROPHILS # (AUTO) 6.8 K/uL (1.8-7.7); NEUTROPHILS % (AUTO) 68.7 % (42.2-75.2); PLATELET COUNT (AUTO) 260 K/uL (140-450); RED BLOOD CELL COUNT(AUTO) 4.63 MIL/uL (4.20-5.40); RED CELL DISTRIBUTION WIDTH 14.2 % (11.6-13.7); WHITE BLOOD COUNT (AUTO) 9.9 K/uL (4.8-10.8)
[2023-11-05 10:51] LABS: ANION GAP 12.8 (8-16); CALCIUM 8.9 mg/dL (8.5-10.1); CARBON DIOXIDE 24.9 mmol/L (21-32); CREATININE 0.7 mg/dL (0.6-1.3); POTASSIUM 3.7 mmol/L (3.5-5.1)
[2023-11-05 10:54] LABS: ALANINE AMINOTRANSFERASE 51 U/L (12-78); ALBUMIN 3.6 g/dL (3.4-5.0); ALKALINE PHOSPHATASE 56 U/L (50-136); ASPARTATE AMINOTRANSFERASE 75 U/L (15-37); BILIRUBIN,DIRECT 0.1 mg/dL (0.0-0.3); LIPASE 9 U/L (16-77); TOTAL BILIRUBIN 0.3 mg/dL (0.0-1.0); TOTAL PROTEIN, SERUM 7.4 g/dL (6.4-8.2)
[2023-11-05 10:57] VITALS: BP 143/87; PULSE 90; RESP 18; O2SAT 98
[2023-11-05] MEDS: KETOROLAC 30 MG/ML VIAL IM ONE (11:03)
== END 2023-11-05 12:05 | disposition home or self-care (01) ==
LOC: MED 09:39
DX: R07.89 Other chest pain (principal); E11.9 Type 2 diabetes mellitus without complications; I25.10 Atherosclerotic heart disease of native coronary artery without angina pectoris; N80.9 Endometriosis, unspecified; Z91.040 Latex allergy status; Z88.8 Allergy status to other drugs, medicaments and biological substances; Z79.899 Other long term (current) drug therapy; Z79.4 Long term (current) use of insulin
CPT/HCPCS: 36415; 71045; 80048; 80076; 83690; 84484; 85025; 93005; 96372; 99285; J1885

== ENCOUNTER 2023-12-23 18:06 | Emergency (ER) | payer OTHER ==
[~2023-12-23] VITALS: Ht 149.9 cm; Wt 78.5 kg
[2023-12-23 18:33] VITALS: BP 172/117; PULSE 90; RESP 17; TEMP 98; O2SAT 98
[2023-12-23 19:40] LABS: BASOPHILS # (AUTO) 0.1 K/uL (0.00-0.22); BASOPHILS % (AUTO) 0.7 % (0.0-2.0); EOSINOPHILS # (AUTO) 0.3 K/uL (0-0.4); EOSINOPHILS % (AUTO) 3.2 % (0.0-4.0); HEMATOCRIT 39.1 % (36-48); HEMOGLOBIN 12.9 g/dL (12.0-16.0); LYMPHOCYTES # (AUTO) 3.4 K/uL (2.5-16.5); MEAN CORPUSCULAR HEMOGLOBIN 27 pg (27-31); MEAN CORPUSCULAR HGB CONC 33 g/dL (33-37); MEAN CORPUSCULAR VOLUME 81.4 fL (80-94); MONOCYTES # (AUTO) 0.8 K/uL (0.8-1.0); MONOCYTES % (AUTO) 8.2 % (1.7-9.3); NEUTROPHILS # (AUTO) 5.2 K/uL (1.8-7.7); NEUTROPHILS % (AUTO) 52.9 % (42.2-75.2); PLATELET COUNT (AUTO) 296 K/uL (140-450); RED CELL DISTRIBUTION WIDTH 13.6 % (11.6-13.7); WHITE BLOOD COUNT (AUTO) 9.8 K/uL (4.8-10.8)
[2023-12-23 19:50] LABS: APPEARANCE,URINE CLEAR (CLEAR); BILIRUBIN,URINE NEGATIVE (NEGATIVE); BLOOD, URINE NEGATIVE (NEGATIVE); COLOR,URINE YELLOW (YELLOW); LEUKOCYTE ESTERASE ,URINE NEGATIVE (NEGATIVE); NITRITE, URINE NEGATIVE (NEGATIVE); PROTEIN,URINE NEGATIVE (NEGATIVE); UGLUCOSE 2+ (NEGATIVE); UROBILINOGEN,URINE 0.2 EU/dL (0.2 - 1)
[2023-12-23 19:55] LABS: ANION GAP 13.3 (8-16); CALCIUM 9.2 mg/dL (8.5-10.1); CARBON DIOXIDE 25.5 mmol/L (21-32); CREATININE 0.8 mg/dL (0.6-1.3); POTASSIUM 3.8 mmol/L (3.5-5.1)
[2023-12-23 20:01] LABS: ALBUMIN 3.6 g/dL (3.4-5.0); BILIRUBIN,DIRECT 0.1 mg/dL (0.0-0.3); TOTAL BILIRUBIN 0.2 mg/dL (0.0-1.0); TOTAL PROTEIN, SERUM 7.8 g/dL (6.4-8.2)
[2023-12-23] MEDS: ONDANSETRON 4 MG/2 ML VIAL IVP ONE (20:23)
[2023-12-23] MEDS: MORPHINE SULFATE 10 MG/ML VIAL IVP ONE (20:24)
[2023-12-23] MEDS: KETOROLAC 30 MG/ML VIAL IVP ONE (22:22)
[2023-12-23] MEDS: FAMOTIDINE 20 MG TAB PO ONE (22:22)
[2023-12-23] MEDS: DICYCLOMINE HCL LIQUID 10 MG/5 ML UDC PO ONE (22:23)
[2023-12-23] MEDS: ALUMINUM HYD/MAG/SIMETHICONE 30 ML UDC PO ONE (22:23)
[2023-12-23 22:27] VITALS: BP 152/88; PULSE 102; RESP 20; TEMP 98; O2SAT 99
== END 2023-12-23 22:27 | disposition home or self-care (01) ==
LOC: MED 18:06
DX: R10.9 Unspecified abdominal pain (principal); R11.10 Vomiting, unspecified; R19.7 Diarrhea, unspecified; E11.9 Type 2 diabetes mellitus without complications; Z86.69 Personal history of other diseases of the nervous system and sense organs; Z79.899 Other long term (current) drug therapy; Z88.8 Allergy status to other drugs, medicaments and biological substances; Z91.013 Allergy to seafood
CPT/HCPCS: 36415; 74176; 80048; 80076; 81003; 81025; 83690; 85025; 96374; 96375; 99285; J1885; J2270; J2405